=== PATIENT | female | born 1955 | race Caucasian/White ===

== ENCOUNTER 2024-03-13 14:18 | Outpatient (AMB) | payer MEDICARE, SELFPAY ==
--- NOTE | 2024-03-13 14:00 | MHC.PC.OV ---
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 Intake Note: New patient visit [place] [facility] Required: No Allergies NSAIDS (Non-Steroidal Anti-Inflamma Allergy (Unknown, Verified 03/13/24 14:01) Unknown Tobacco use date assessed: 03/13/24 Fall risk assessment: No Falls in past year Last assessed Fall Risk: 03/13/24 Dental Screening Dental Screen Date: 03/13/24 Did you have a dental visit in the last 12 months?: No Did you have a dental problem in the last 6 months where you did not have access to dental care?: No Was dental information given to patient?: Patient declined HPI HPI Comments History of Present Illness Details This is a 67-year-old female with a past medical history of ileitis, obesity, hypertension, osteoarthritis presenting to [facility]. She transferred from my panel at [facility]. Patient was informed and verbally consented to the use of an ambient scribe for clinic note documentation during this visit. She has increased anxiety secondary to recent significant life stressors, including the of her from cancer in hospice care in October. She is struggling with grief and significant life transitions, which are impacting her mental health. Her brother February of 2023. Patient is still working. She is trying to deal with the finances following the of her . Patient followed by [facility]iology for palpitations. During recovery following colonoscopy she briefly went into a tachy arrhythmia. It was very brief under 60 seconds. It was not demonstrated on 12 lead EKG. She had a 2 week monitor with Cardiology, and they increased her dose of metoprolol. She says they did not call with the results of her monitor. The patient describes ongoing right shoulder pain since September, exacerbated by movement, and complicated by a long history of repetitive stress from work. There?s limited range of motion noted in lifting her arm above her head. She uses topical analgesics for relief but reports persistent discomfort. Sometimes she has tension in her neck muscles and pain and feels a burning between the right shoulder and neck. No weakness in her arm or numbness or tingling in her arm. She continues to suffer from insomnia, worsened by anxiety and chronic knee pain, leading to fatigue and coping difficulties. Previous treatments have included tramadol and lorazepam, which she finds effective for managing her symptoms. Eduardo would not fill these medications after I left the office. She has tried SSRIs, and they made her feel like a zombie. Patient had a colonoscopy 04/30/2023 following episode of ileitis. Denies abdominal pain, nausea, vomiting or diarrhea. ROS - Psychiatric: Reports increased stress, anxiety, and insomnia. - Musculoskeletal: Reports right shoulder pain with movement. - Cardiovascular: Reports episodes of palpitations. Denies chest pain, shortness of breath, syncope or leg swelling. PE Constitutional: Alert, in no distress. Respiratory: Clear to auscultation. Cardiovascular: S1 S2 regular. No murmurs.. Neurologic: No focal neurological deficits Musculoskeletal: Decreased abduction with the left shoulder. Positive empty can test with the left shoulder. Full range of motion with the cervical spine. No midline spinal tenderness. Handgrip strength 5/5 bilaterally. Extremities: Warm and well perfused. No clubbing, cyanosis or edema. Psychiatric: Normal mood and affect. [facility] Medical History (Updated 03/13/24 @ 16:27 by ROS cMgarry) Osteoarthritis of knees, bilateral Ileitis Tubular adenoma of colon Essential hypertension Palpitations Anxiety Grief reaction Right shoulder pain Neck pain Bilateral cataracts Surgical History (Updated 03/13/24 @ 13:57 by Cinda Rivas CMA) History of bunionectomy H/O section Hx of total knee replacement Family History (Updated 03/13/24 @ 13:59 by Cinda Rivas CMA) Mother DVT (deep venous thrombosis) Pulmonary embolism Polymyalgia rheumatica Father ETOH abuse Brother Arthritis Lupus (systemic lupus erythematosus) Other Substance abuse Social History (Updated 03/13/24 @ 14:29 by Cinda Rivas CMA) Housing: House Alcohol intake: current Patient Tobacco Use Status: Former Tobacco user Cigarettes Per Day: 3 Years Smoked: 6 e-Cigarette/Vaping Use: Never Used service: No Current occupational status: employed 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 Current occupational exposures/hazards: No Cognitive needs: No Hearing needs: No Vision needs: No Physical exam (Primary Care) Vital Signs: Last Vital Signs Pulse 63 03/13/24 14:21 BP 116/86 11/21/24 14:21 Pulse Ox 98 03/13/24 14:21 Oxygen Delivery Method Room Air 03/13/24 14:21 BMI result Body Mass Index 36.4 Tobacco/Smoking Status: Tobacco use Status Tobacco use date assessed 03/13/24 03/13/24 14:30 Patient Tobacco Use Status Former Tobacco user 03/13/24 14:30 e-Cigarette/Vaping Use Never Used 03/13/24 14:30 Coding Level of Care Code Est Pt Level 5 (33953) Complex EM visit Add On G2211 Diagnoses Anxiety F41.9 Grief reaction F43.21 Chronic right shoulder pain M25.511; G89.29 Chronicity: chronic Neck pain M54.2 Palpitations R00.2 Time Spent (min) 50 Comment direct patient care and completing documentation Assessment & Plan Assessment & Plan (1) Anxiety: Code(s): F41.9 - Anxiety disorder, unspecified Category: Medical (2) Grief reaction: Code(s): F43.21 - Adjustment disorder with depressed mood Category: Medical (3) Right shoulder pain: Code(s): M25.511 - Pain in right shoulder Category: Medical Qualifiers: Chronicity: chronic Qualified Code(s): M25.511 - Pain in right shoulder; G89.29 - Other chronic pain (4) Neck pain: Code(s): M54.2 - Cervicalgia Category: Medical (5) Palpitations: Code(s): R00.2 - Palpitations Category: Medical Plan Anxiety: The patient continues to experience anxiety and insomnia. Refill of lorazepam 1 mg BID prn for use as needed for anxiety management. Discussed consideration of potential sleep aids, with non-benzodiazepine options preferred if needed. Grief reaction: Emotional support provided to patient. Referred to therapy and given information for [facility]. Chronic Pain: Patient was instructed to resume tramadol 50 mg every 8 hours as needed for chronic shoulder pain, considering the persistent pain due to OA in her knees and chronic left shoulde rpain. A referral for physical therapy was discussed as part of a multimodal approach pending imaging results. Palpitations: Ensure continuation of metoprolol and follow up with cardiology to interpret results from heart monitoring. Advised on monitoring symptoms and seeking further cardiology follow-up . Right Shoulder Pain: Ordered X-rays of the right shoulder and cervical spine to evaluate the integrity and possible causes of pain, such as rotator cuff issues or cervical spine involvement. If indicated, follow-up with physical therapy and consider MRI if no improvement after conservative measures. Essential Hypertension: Continue current antihypertensive regimen. Reassess at follow-up to ensure blood pressure goals are being met. Follow up in 8 weeks. Orders: Orders XR shoulder RT min 2V Today M54.2 - Cervicalgia XR cervical spine 4V Today M25.511 - Pain in right shoulder Referrals Psychology Referral F41.9 - Anxiety disorder, unspecified, F43.21 - Adjustment disorder with depressed mood, Z63.4 - Disappearance and of family member Medications: New tramadol 50 mg PO Q8H 28 days PRN 84 tabs 0RF pain lorazepam 1 mg PO BID 28 days PRN 56 tabs 0RF anxiety
[2024-03-13 14:21] VITALS: BP 116/86; PULSE 63; O2SAT 98; BMI 36.4
== END 2024-03-13 15:08 | disposition home or self-care (01) ==
PROVIDERS: PCP Physician Assistant Medical; Visit Provider Physician Assistant Medical
DX: M25.511 Pain in right shoulder (principal); F41.9 Anxiety disorder, unspecified; F43.21 Adjustment disorder with depressed mood; G89.29 Other chronic pain; M54.2 Cervicalgia; R00.2 Palpitations

== ENCOUNTER → 2024-03-13 14:18 | Outpatient (BNVA) | payer MEDICARE, SELFPAY | PROVIDERS: PCP Physician Assistant Medical; Visit Provider Physician Assistant Medical | DX: F41.9 Anxiety disorder, unspecified (principal); G47.00 Insomnia, unspecified; F43.21 Adjustment disorder with depressed mood; G89.29 Other chronic pain; M25.511 Pain in right shoulder; M17.0 Bilateral primary osteoarthritis of knee; M54.2 Cervicalgia; R00.2 Palpitations; I10 Essential (primary) hypertension; Z79.899 Other long term (current) drug therapy | CPT/HCPCS: 99212 ==

== ENCOUNTER 2024-05-09 18:07 | Outpatient (REF) | payer MEDICARE, SELFPAY ==
--- NOTE | ~2024-05-09 | MR_ITS ---
CLINICAL HISTORY: M54.12 - Radiculopathy, cervical region MR cervical spine without gadolinium Comparison: None Findings: Mildly accentuated cervical lordosis. Minute degenerative or physiologic retrolisthesis of C3, C4 and C5. Minute spondylolisthesis of T1 and T2. Normal vertebral body height, marrow signal and precervical soft tissue thickness. Intact craniocervical junction and C1-2. C2-3: Central disc protrusion without cord contact or effacement. Right-sided facet arthritis with mild narrowing right C3 foramen. Patent left C3 foramen. C3-4: Central protrusion appearing to slightly indent the ventral cervical cord. No intradural signal abnormality. Mild right-sided facet arthritis slightly effacing right C4 foramen. C4-5: Disc osteophyte complex and mild facet arthritis. Cord contact without cord effacement or intradural signal abnormality. C5 foraminal narrowing slightly greater to the right. C5-6: Disc osteophyte complex . Mild ventral cord effacement without intradural signal abnormality. Effacement of the ventral and dorsal CSF columns. Uncinate hypertrophy [id number] with C6 foraminal stenosis greater to the right. C6-7: Disc osteophyte complex, mild cord effacement without intradural signal abnormality. Mild facet arthritis. Patent C7 foramina. C7-T1: Normal disc level. No acute process evident in the included posterior fossa structures. No intradural signal abnormality. No acute appearing abnormality of the paracervical soft tissues. IMPRESSION: Degenerative disc changes throughout. Mild spinal stenosis with ventral cord effacement at C5-6 slightly greater than C6-7 with slight cord effacement at C3-4 and C4-5. No critical stenosis. No intradural signal abnormality. Asymmetric right-sided facet arthritis at C3-4 with right C4 foraminal narrowing. Additional foraminal narrowing as detailed. This document has been electronically signed by: Rasheed Millard MD on 05/12/2024 11:23:19
--- NOTE | ~2024-05-09 | MR_ITS ---
CLINICAL HISTORY: M25.511 - Pain in right shoulder MR right shoulder without gadolinium Comparison: None Findings: Exam degraded by motion artifact. Degenerative cystic changes in the anterior medial and posterolateral humeral head. No evidence of occult fracture, contusion or osteonecrosis. Severe chondrosis of the glenohumeral joint with large osteophyte from the inferior humeral head. Joint effusion with 7 mm intra-articular body in the subcoracoid recess. Severe tendinosis of the supraspinatus tendon with near full-thickness critical zone tear at approximately 11 x 9 mm in length and width . Few residual intrasubstance fibers. Additional bursal surface partial tear involving proximally 50% of the cross-sectional tendon diameter. Mild articular surface fraying of the infraspinatus. Intact teres minor and subscapularis tendons. Intact tendon long head of the biceps. Degenerative type 2 SL AP tear. Moderate degenerative arthritis AC joint. Type 2 acromion with anterior downsloping and inferior projecting osteophytes with subacromial spur and thickened coracoacromial ligament insertion all combining to efface the subacromial outlet interval and bursal surface of the supraspinatus myotendinous junction. Suprascapular, spinoglenoid notch, quadrilateral space and axillary regions intact. Impression: Advanced degenerative arthritis of the glenohumeral joint with severe chondrosis, large inferior osteophyte from the humeral head and intra-articular loose body. Severe tendinosis with a high-grade essentially complete non retracted tear of the supraspinatus tendon as above. Articular surface fraying of the infraspinatus tendons. Intact teres minor and subscapularis tendons. Normal cuff muscles. Joint effusion and effusion of the subdeltoid subacromial bursa. Degenerative superior labral tear. This document has been electronically signed by: Rasheed Millard MD on 05/12/2024 11:08:31
== END 2024-05-09 18:08 | disposition home or self-care (01) ==
LOC: HO.MRI 18:07
PROVIDERS: PCP Physician Assistant Medical; Visit Provider Physician Assistant Medical
DX: M54.12 Radiculopathy, cervical region (principal); M25.511 Pain in right shoulder; G89.29 Other chronic pain
CPT/HCPCS: 72141; 73221

== ENCOUNTER → 2024-05-09 18:19 | Outpatient (BNV) | payer MEDICARE, SELFPAY | PROVIDERS: PCP Physician Assistant Medical; Visit Provider Radiology Diagnostic Radiology | DX: M50.30 Other cervical disc degeneration, unspecified cervical region (principal); M19.011 Primary osteoarthritis, right shoulder; M67.813 Other specified disorders of tendon, right shoulder; M25.411 Effusion, right shoulder | CPT/HCPCS: 72141; 73221 ==

== ENCOUNTER 2024-09-22 09:58 | Outpatient (AMB) | payer MEDICARE, SELFPAY ==
--- NOTE | 2024-09-22 10:00 | MHC.PC.OV ---
Vital Signs 09/22/24 10:06 Height 5 ft 3.78 in Weight 212 lb BMI 36.6 BP 124/68 Blood Pressure Location Rt brachial Pulse 66 Pulse Source Pulse Oximeter Temp 97.9 F Temp Source Temporal Artery Scan Pulse Oximetry (%) 97 Oxygen Delivery Method Room Air Intake Visit Reasons: lab review/neck/shoulder fu Intake Note: Falguni presents in the office today to go over her most recent lab results and issues with her neck and shoulder. Allergies NSAIDS (Non-Steroidal Anti-Inflamma Allergy (Unknown, Verified 09/22/24 10:04) Unknown Tobacco use date assessed: 09/22/24 Fall risk assessment: No Falls in past year Last assessed Fall Risk: 09/22/24 Dental Screening Dental Screen Date: 09/22/24 Did you have a dental visit in the last 12 months?: No Did you have a dental problem in the last 6 months where you did not have access to dental care?: No Was dental information given to patient?: Patient has dentist HPI HPI Comments History of Present Illness Details This is a 67-year-old female with a past medical history of ileitis, obesity, hypertension, osteoarthritis presenting for follow up. At her last visit she reported right shoulder pain since September 2023 exacerbated by movement and complicated by stress. She had limited range of motion lifting her arm above her head. She also endorsed tension in her neck muscles and feeling burning between the right shoulder and neck. She had an MRI of her right shoulder and her cervical spine 05/09/2024. This demonstrated advanced degenerative arthritis in her glenohumeral joint with severe chondrosis, severe tendinosis with a high-grade essentially complete non retracted tear of the supraspinatus tendon and a joint effusion of the subdeltoid subacromial bursa and a degenerative superior labral tear. It also showed degenerative disc disease, mild spinal stenosis and asymmetric right-sided facet arthritis with C3-C4 foraminal narrowing. I referred her to Orthopedics. She went to [facility]. Current pain medications include tramadol 50 mg every 8 hours which she was taking previously due to chronic knee pain and osteoarthritis, and she is using Percocet infrequently for severe pain. She had a cortisone shot which helped for a month. She is going to follow up with [facility]. She is doing physical therapy. She started in August. She reported lightheadedness for 3-4 days. No room spinning sensation, nausea, vomiting. This was a couple months ago. It hasn't returned. She had lab work done on 09/01/24. CBC was normal. Sodium and potassium mildly decreased at 133 and 3.3. Normal LFTs. Negative urinalysis. Normal TSH. B12 350. Magnesium normal at 2.0. The patient is on chlorthalidone for hypertension. She also takes metoprolol succinate ER 50 mg a day. Her blood pressure is well-controlled. Started B12. She has increased anxiety secondary to recent significant life stressors, including the of her from cancer in hospice care in October 2023. Patient is still working. She is trying to deal with the finances following the of her . She thinks about grief counseling, but she is not ready to pursue it yet. Her kids and family are very supportive. Patient followed by [facility] in [place] for palpitations. During recovery following colonoscopy she briefly went into a tachy arrhythmia. It was very brief under 60 seconds. It was not demonstrated on 12 lead EKG. She had a 2 week monitor with Cardiology, and they increased her dose of metoprolol. Denies palpitations, chest pain, shortness of breath. She continues to suffer from insomnia, worsened by anxiety and chronic knee pain, leading to fatigue and coping difficulties. She has tried SSRIs, and they made her feel like a zombie. She takes lorazepam as needed. Patient had a colonoscopy 04/30/2023 following episode of ileitis. Denies abdominal pain, nausea, vomiting or diarrhea. ROS: Constitutional: No unexplained weight loss, fever, chills or night sweats. Eyes: No vision changes, blurry vision, double vision, eye pain, eye redness, eye discharge. Respiratory: No shortness of breath, cough or sputum production. Cardiovascular: No chest pain, chest pressure or chest discomfort. No palpitations or pedal edema. Gastrointestinal: No anorexia, nausea, vomiting or diarrhea. No abdominal pain or blood in stool. Genitourinary: No dysuria, hematuria, urinary frequency. Neurologic: No headache, syncope, unilateral weakness, ataxia, numbness or tingling in the extremities. Musculoskeletal: see HPI Psychiatric: No depression. see HPI Physical exam: Constitutional: Alert, in no distress. Head: Normocephalic. Eyes: Pupils are equal, round and reactive to light. Extraocular muscles intact. Ear, Nose and Throat: Canals clear. TMs normal. Normal nasal mucosa. No nasal discharge. No oral lesions. Neck: Supple, Full range of motion. No lymphadenopathy. No palpable thyroid masses. Respiratory: Clear to auscultation. Cardiovascular: S1 S2 regular. No murmurs. No carotid bruits. Neurologic: No focal neurological deficits. Extremities: Warm and well perfused. No clubbing, cyanosis or edema. Psychiatric: Normal mood and affect [facility] Medical History (Updated 09/23/24 @ 13:00 by ROS Mcgarry) Chronic pain Hyponatremia Hypokalemia Dizziness Cervical stenosis of spinal canal Effusion, right shoulder Labral tear of shoulder Right rotator cuff tear Osteoarthritis of knees, bilateral Ileitis Tubular adenoma of colon Essential hypertension Palpitations Anxiety Grief reaction Right shoulder pain Neck pain Bilateral cataracts Surgical History (Updated 03/13/24 @ 13:57 by Cinda Rivas CMA) History of bunionectomy H/O section Hx of total knee replacement Family History Mother DVT (deep venous thrombosis) Pulmonary embolism Polymyalgia rheumatica Father ETOH abuse Brother Arthritis Lupus (systemic lupus erythematosus) Other Substance abuse Social History (Updated 09/22/24 @ 10:05 by Tika Charles MA) Housing: House Alcohol intake: never Patient Tobacco Use Status: Former Tobacco user Cigarettes Per Day: 3 Years Smoked: 6 e-Cigarette/Vaping Use: Never Used service: No Current occupational status: employed 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 1. Little interest or pleasure in doing things: not at all 2. Feeling down, depressed, or hopeless: not at all 3. Trouble falling or staying asleep, or sleeping too much: several days 4. Feeling tired or having little energy: several days 5. Poor appetite or overeating: several days 6. Feeling bad about yourself - or that you are a failure or have let yourself or your family down: not at all 7. Trouble concentrating on things, such as reading the newspaper or watching television: not at all 8. Moving or speaking so slowly that other people could have noticed. Or the opposite - being so fidgety or restless that you have been moving around a lot more than usual: not at all 9. Thoughts that you would be better off or of hurting yourself in some way: not at all Total score: 3 Depression Screening Interpretation: Negative Depression Screening Done: Yes 27987 - PHQ-9 Billing: Yes Source: Developed by Drs. Poncho Lopez, Sharon Steven, Kameron Stevenson and colleagues, with an educational valentin from [employer]. Thrive Questionnaire Date Thrive assessed: 09/22/24 I am a: Patient What is your living situation today?: I have a steady place to live Within the past 12 months, did the food you bought not last and you didn't have the money to get more?: Never true Within the past 12 months, did you worry whether your food would run out before you got money to buy more?: Never true Do you have trouble paying for medicines?: No Do you have trouble getting transportation to medical appointments?: No Do you have trouble paying your heating and electricity bill?: No Do you have trouble taking care of your child, family member or friend?: No Do you have trouble with day-to-day activities such as bathing, preparing meals, shopping, managing finances, etc.?: No Are you currently unemployed and looking for a job?: No Are you interested in more education?: No Please select the resources that you would like help with: None Currently or been in a relationship where the following occur: No concerns reported THRIVE Score: 0 AUDIT C Alcohol Use Questionnaire (AUDIT-C) 1. How often do you have a drink containing alcohol?: Never Total Score: 0 CANDIS-7 AMB Questionnaire CANDIS-7 Date CANDIS - 7 assessed: 09/22/24 Feeling nervous, anxious, or on edge: 0 = Not at all Not being able to stop or control worryin = Not at all Worrying too much about different things: 0 = Not at all Trouble relaxin = Several days Being so restless that it is hard to sit still: 0 = Not at all Becoming easily annoyed or irritable: 0 = Not at all Feeling afraid as if something awful might happen: 0 = Not at all Total CANDIS-7 score (0-4 normal; 5-9 mild; 10-14 moderate; 15-21 severe): 1 Source: Developed by Drs. Poncho Lopez, Sharon Steven, Kameron Stevenson and colleagues, with an educational valentin from [employer]. CANDIS-7 Assessment Billing CANDIS-7 Assessment Tool: CANDIS-7 Assessment 32725 Physical exam (Primary Care) Vital Signs: Last Vital Signs Temp 97.9 F 09/22/24 10:06 Pulse 66 09/22/24 10:06 BP 124/68 09/22/24 10:06 Pulse Ox 97 09/22/24 10:06 Oxygen Delivery Method Room Air 09/22/24 10:06 BMI result Body Mass Index 36.6 Tobacco/Smoking Status: Tobacco use Status Tobacco use date assessed 09/22/24 09/22/24 10:08 Patient Tobacco Use Status Former Tobacco user 09/22/24 10:05 e-Cigarette/Vaping Use Never Used 09/22/24 10:05 PHQ-9: PHQ-9 Score PHQ-9: Total score 3 09/22/24 10:11 Depression Screening Interpretation: Negative Thrive Assessment: Date of Thrive Assessment Date Thrive assessed 09/22/24 09/22/24 10:08 Currently or been in a relationship where the following occur: No concerns reported Coding Level of Care Code Est Pt Level 4 (95894) Complex EM visit Add On G2211 Diagnoses Hypokalemia E87.6 Hyponatremia E87.1 Anxiety F41.9 Grief reaction F43.21 Chronic right shoulder pain M25.511; G89.29 Chronicity: chronic Palpitations R00.2 Chronic pain G89.29 Essential hypertension I10 Additional Codes CANDIS-7 Assessment Billing - CANDIS-7 Assessment Tool: CANDIS-7 Assessment 32984 ([id number]) PHQ-9 - 76456 - PHQ-9 Billing: Yes ([id number]) Assessment & Plan Assessment & Plan (1) Hypokalemia: Code(s): E87.6 - Hypokalemia Category: Medical Plan: In the setting of chlorthalidone use. She was taking [id number] potassium supplement. She will stop and start potassium chloride 20 mEq once daily. (2) Hyponatremia: Code(s): E87.1 - Hypo-osmolality and hyponatremia Category: Medical Plan: We reviewed her fluid intake. She drinks 5 or 6 bottles of water a day. She is going to decrease her fluid intake and she should have a beverage with electrolytes in it like a Gatorade zero sugar or Pedialyte once daily. (3) Anxiety: Code(s): F41.9 - Anxiety disorder, unspecified Category: Medical (4) Grief reaction: Code(s): F43.21 - Adjustment disorder with depressed mood Category: Medical Plan: She thinks about grief counseling, but she is not ready to pursue it yet. Did not respond well to antidepressant/antianxiety meds in the past. Continue lorazepam 1 mg twice daily as needed. Do not take this if you are taking tramadol or Percocet. Do not drive, drink alcohol or operate heavy machinery with it. (5) Right shoulder pain: Code(s): M25.511 - Pain in right shoulder Category: Medical Qualifiers: Chronicity: chronic Qualified Code(s): M25.511 - Pain in right shoulder; G89.29 - Other chronic pain Plan: Starting physical therapy. She had a cortisone injection. Followed by [facility]. (6) Palpitations: Code(s): R00.2 - Palpitations Category: Medical Plan: Evaluated by Cardiology. No recurrence. Continue beta-nile. (7) Chronic pain: Code(s): G89.29 - Other chronic pain Category: Medical Plan: Stable on current regimen. Patient aware not to use Percocet for her shoulder if she is taking tramadol. Do not drive or operate heavy machinery or drink alcohol with these medications. (8) Essential hypertension: Code(s): I10 - Essential (primary) hypertension Category: Medical Plan: Controlled. Continue current regimen. Plan Repeat labs in 4 weeks. Schedule physical exam in 4 months. Orders: Orders Sodium 1 Month E87.1 - Hypo-osmolality and hyponatremia, E87.6 - Hypokalemia Potassium 1 Month E87.1 - Hypo-osmolality and hyponatremia, E87.6 - Hypokalemia Vitamin B12 1 Month E87.1 - Hypo-osmolality and hyponatremia, E87.6 - Hypokalemia, Z91.89 - Other specified personal risk factors, not elsewhere classified Medications: New potassium chloride ER 20 mEq PO DAILY 90 tabs 0RF
[2024-09-22 10:06] VITALS: BP 124/68; PULSE 66; TEMP 36.6; O2SAT 97; BMI 36.6
--- OUTSIDE RECORDS SUMMARY | 2024-09-22 10:50 | XMS_ITS | Clinical Summary ---
Author Organization [facility] it Address [address] [place] [address] Care Team Providers Care Gang Boss Name Role Phone Naeem Stein MD Primary Care Provider [phone] Surgical History Surgery Date Site/Laterality Comments BUNIONECTOMY 2011 Right PROCEDURE: CT CORRJ HLX VLGS BNCTY SESMDC W/DOUBLE OSTEOTOMY; COMMENT: has plate/screws SECTION PROCEDURE: HISTORICAL DELIVERY; COMMENT: x 3 OTHER SURGICAL HISTORY 1986 PROCEDURE: INSERTION OF CHEST TUBE Medical History Medical History Date Comments Knee pain, chronic DX:Knee pain, chronic; COMMENT: left HLD (hyperlipidemia) 03/06/2014 DX:HLD (hyp erlipidemia) Anxiety 01/26/2016 DX:Anxiety Hypertension 01/27/2021 DX:Hypertension Hypertension 01/27/2021 DX:Hypertension Family History Medical History Relation Name Comments Glaucoma Mother Macular degeneration Uncle Blindness Neg Hx cataract, strab ismus Relation Name Status Comments Mother Uncle Social History Tobacco Use Types Packs/Day Years Used Date Smoking Tobacco: Former Cigarettes 0.3 47 0 04/23/1972 - 04/23/2019 Smokeless Tobacco: Never Alcohol Use Standard Drinks/Week Comments No 0 (1 standard drink = 0.6 oz pur e alcohol) Comments Unknown Sex and Gender Information Value Date Recorded Sex Assigned at Not on file Legal Sex Female 4:46 AM EST Gender Identity Not on file Sexual Orientation Not on file Obstetrics History Last Filed Vital Signs Vital Sign Reading Time Taken Comments Blood Pressure 148/88 09/06/2021 7:14 AM EDT Pulse - - Temperature - - Respiratory Rate - - Oxygen Saturation - - Inhaled Oxygen Concentration - - Weight 101 kg (223 lb) 09/06/2021 7:14 AM EDT Height 165.1 cm (5' 5 ) 09/06/2021 7:14 AM EDT Body Mass Index 37.11 09/06/2021 7:14 AM EDT Plan of Treatment Health Maintenance Due Date Last Done Comments Breast Cancer Screening 1955 Pneumococcal Vaccine: 50+ Years (1 of 1 - PCV) 2006 Zoster Vaccines (1 of 2) 2006 Cholesterol Screening (Lipid Panel) 03/26/2022 Colorectal Cancer Screening: Stool Based Tests (FOBT/FIT) 03/26/2022 Depression Screening 03/26/2022 Falls Risk Assessment 03/26/2022 Hepatitis C Screening 03/26/2022 Osteoporosis Screening (Bone Density Screening) 03/26/2022 Social Influencers of Health Screening 03/26/2022 Hypertension/CHF/CAD Annual BMP Blood Test 04/02/2022 COVID-19 Vaccine (4 - 2023-2 5 season) 2023 04/22/2021, 07/31/2020, 07/10/2020 Influenza Vaccine (Season Ended) 2024 DTaP,Tdap,and Td Vaccines (3 - Td or Tdap) 10/01/2028 10/01/2018, 04/23/2008 RSV Immunization Adult Patients (1 - 1-dose 75+ series) 08/28/2031 HIB Vaccines Aged Out No longer eligi ble based on patient's age to complete this topic HPV Vaccines Aged Out No longer eligi ble based on patient's age to complete this topic Hepatitis A Vaccines Aged Out No long er eligible based on patient's age to complete this topic Hepatitis B Vaccines Aged Out No long er eligible based on patient's age to complete this topic IPV Vaccines Aged Out No longer eligi ble based on patient's age to complete this topic MMR Vaccines Aged Out No longer eligi ble based on patient's age to complete this topic Meningococcal ACWY Vaccine Aged Out N o longer eligible based on patient's age to complete this topic Meningococcal B Vaccine Aged Out No l onger eligible based on patient's age to complete this topic RSV Immunization Patients Under 20 months Aged Out No longer eligible b ased on patient's age to complete this topic Varicella Vaccines Aged Out No longer eligible based on patient's age to complete this topic Advance Directives Documents on File Type Date Recorded 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
== END 2024-09-22 10:40 | disposition home or self-care (01) ==
LOC: HO.HMCFM 09:59
PROVIDERS: PCP Physician Assistant Medical; Visit Provider Physician Assistant Medical
DX: E87.6 Hypokalemia (principal); E87.1 Hypo-osmolality and hyponatremia; F41.9 Anxiety disorder, unspecified; F43.21 Adjustment disorder with depressed mood; M25.511 Pain in right shoulder; G89.29 Other chronic pain; R00.2 Palpitations; I10 Essential (primary) hypertension

== ENCOUNTER → 2024-09-22 09:58 | Outpatient (BNVA) | payer MEDICARE, SELFPAY | PROVIDERS: PCP Physician Assistant Medical; Visit Provider Physician Assistant Medical | DX: E66.9 Obesity, unspecified (principal); I10 Essential (primary) hypertension; E87.1 Hypo-osmolality and hyponatremia; E87.6 Hypokalemia; F41.9 Anxiety disorder, unspecified; F43.21 Adjustment disorder with depressed mood; M25.511 Pain in right shoulder; G89.29 Other chronic pain; R00.2 Palpitations; Z68.36 Body mass index [BMI] 36.0-36.9, adult; Z87.891 Personal history of nicotine dependence; Z91.89 Other specified personal risk factors, not elsewhere classified | CPT/HCPCS: 96127; 99212 ==

== ENCOUNTER 2025-01-18 12:17 | Inpatient (IN) | payer MEDICARE, SELFPAY ==
--- NOTE | ~2025-01-18 | CT_ITS ---
CLINICAL HISTORY: severe abd pain CT abdomen and pelvis with contrast Comparison: None provided Findings: CT abdomen: Minor atelectasis within the right lower lobe. Lung bases otherwise clear. Multilevel degenerative disc disease and degenerative facet disease throughout the lumbar spine, most pronounced at L2-3 and L4-5. Mild convex right thoracolumbar curvature with compensatory convex left lower lumbar curvature. Small hiatal hernia. Stomach is decompressed. No dilated small bowel. Cysts are seen along the anterior aspect of the lateral segment of the left lobe of the liver measuring up to 12 mm in size. No solid hepatic mass lesions. Main portal vein is patent. Small splenule. Spleen is otherwise unremarkable. No pancreatic mass or peripancreatic inflammatory stranding. Gallbladder, adrenal glands, and kidneys are unremarkable for acute findings. No renal or ureteral calculi. No free air. CT pelvis: Prominent concentric wall thickening of the distal ileum and terminal ileum is identified. This wall thickening measures up to 12 mm. There is adjacent inflammatory stranding. This extends to the level of the ileocecal valve. Appendix is normal. No significant wall thickening of the colon. Scattered diverticuli seen within the distal descending colon and sigmoid colon without findings of diverticulitis. Urinary bladder is [id number] distended. No enlarged lymph nodes. Trace free pelvic fluid. IMPRESSION: Prominent concentric wall thickening of the distal ileum and terminal ileum most characteristic of infectious or inflammatory enteritis. Given that this involves the terminal ileum, inflammatory bowel disease (Crohn's disease) should be considered as a potential etiology. Clinical correlation advised. No findings to suggest perforation or obstruction at this time. This document has been electronically signed by: Edward Oliveros MD on 01/18/2025 16:14:04
[2025-01-18 12:40] VITALS: BP 186/87; PULSE 82; RESP 17; TEMP 36.3; O2SAT 95; BMI 34.4
--- NOTE | 2025-01-18 12:43 | ED.ABDPAIN ---
HPI - Abdominal Pain General Chief Complaint: Abdominal Pain Stated Complaint: severe abd cramping, diarrhea Time Seen by Provider: 01/18/25 13:20 Source: patient Mode of arrival: ambulatory Limitations: no limitations History of Present Illness ED Provider: ROS Moura HPI narrative: This is a 69-year-old female past medical history significant for ileitis, anxiety, hypertension, tubular adenoma of colon, presenting to the emergency department with a few days of nausea, vomiting, diffuse abdominal pain, diarrhea. She has been having difficulty tolerating p.o.. She reports a similar episode to this happened a few weeks ago. She does report recent antibiotic use within the past month. Reports she was taking it for ?blocked gland ?. She reports each time she eats she has a bowel movement. Overall feeling fatigued. She denies fevers, chills, chest pain, shortness of breath, headache, vision changes, dizziness and weakness. Patient had an colonoscopy done within last year reports it was normal Related Data Home Medications ?Medication ?Instructions ?Recorded ?Confirmed ascorbic acid (vitamin C) 1,000 mg 1 g PO Q6H 03/13/24 capsule cholecalciferol (vitamin D3) 125 125 mcg PO .3 times a week 03/13/24 mcg (5,000 unit) capsule zinc 140 .Route 03/13/24 Previous Rx's ?Medication ?Instructions ?Recorded chlorthalidone 25 mg tablet 25 mg PO DAILY #90 tabs 06/17/24 metoprolol succinate 50 mg 50 mg PO DAILY #90 tabs 06/17/24 tablet,extended release 24 hr cyanocobalamin (vitamin B-12) 1,000 mcg PO DAILY #90 tabs 09/11/24 1,000 mcg tablet oxycodone-acetaminophen 5 mg-325 1 tab PO Q12H PRN pain, severe 7 10/07/24 mg tablet (Percocet) days #14 tabs amoxicillin 875 mg-potassium 1 tab PO BID #20 tabs 11/13/24 clavulanate 125 mg tablet tramadol 50 mg tablet 50 mg PO Q8H PRN pain 28 days #84 11/28/24 tabs potassium chloride 20 mEq 20 meq PO DAILY #90 tabs 12/15/24 tablet,extended release lorazepam 1 mg tablet 1 mg PO BID PRN anxiety 28 days 12/25/24 #56 tabs Allergies Allergy/AdvReac Type Severity Reaction Status Date / Time NSAIDS (Non-Steroidal Allergy Unknown Unknown Verified 01/18/25 12:43 Anti-Inflamma Review of Systems Review of Systems Yes all other systems are reviewed and are negative [facility] Past Medical History Attestation statement: The following information was validated with the patient. Source: old records reviewed and nursing notes reviewed Medical History Chronic pain Hyponatremia Hypokalemia Dizziness Cervical stenosis of spinal canal Effusion, right shoulder Labral tear of shoulder Right rotator cuff tear Osteoarthritis of knees, bilateral Ileitis Tubular adenoma of colon Essential hypertension Palpitations Anxiety Grief reaction Right shoulder pain Neck pain Bilateral cataracts Surgical History History of bunionectomy H/O section Hx of total knee replacement Family History Family History Mother DVT (deep venous thrombosis) Pulmonary embolism Polymyalgia rheumatica Father ETOH abuse Brother Arthritis Lupus (systemic lupus erythematosus) Other Substance abuse Social History Social History Housing: House Unable to assess alcohol history related to: Unknown Alcohol intake: never Patient Tobacco Use Status: Former Tobacco user Cigarettes Per Day: 3 Years Smoked: 6 e-Cigarette/Vaping Use: Never Used Advance Directives: No Advance Directives Information Provided: Yes Do you have a plan to hurt others: No Plan service: No Current occupational status: employed 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 Oriented X3.? No acute distress.? Head: Normocephalic, atraumatic, no step-offs or deformities Eyes: Pupils equal, round and reactive to light.? ENT: Pharynx normal.? Neck: Normal inspection.? Neck supple.? CVS: Normal heart rate and rhythm.? Pulses normal.? Respiratory: No respiratory distress.? Breath sounds normal.? Abdomen: Soft and diffusely tender normoactive bs .? Skin: Skin warm and dry.? Normal skin color.? Normal skin turgor.? Extremities: No lower extremity edema.? No calf ttp. 5/5 strength to bilateral upper and lower extremitieBack: No midline tenderness, no C-spine tenderness, full range of motion, no CVA tenderness bilaterally Neuro: Oriented X 3.? No motor deficit.? No sensory deficit. CN 2-12 intact Vital Signs: Vital Signs - 24 hr 01/18/25 12:40 01/18/25 14:24 Temperature 97.4 F 98.5 F Pulse Rate 82 77 Respiratory Rate 17 18 Blood Pressure 186/87 H 167/73 H Pulse Oximetry 95 100 Oxygen Delivery Method Room Air Room Air BMI result Body Mass Index 34.4 vss Const General: cooperative, comfortable and no acute distress Course Course Course Narrative: Nel Edwards [employer]O MUSICIAN 01/18 1245 This is a rapid medical exam. deferred additional HPI, ROS, PE to primary provider. 69 yo female with history of HTN here with complaints of abdominal pain, vomiting, diarrhea since Sunday night. H/o ileus and feels similar. Will obtain labs, UA, viral testing VSS Reevaluation(s) Reevaluation #1: CBC unremarkable. Chemistry with low potassium 2.5, IV potassium ordered. Will also give p.o. potassium. UA clean. COVID, influenza negative. CT abd and pelvis pending. GI studies pending Time: 15:20 Reevaluation #2: CT abdomen pelvis with prominent concentric wall thickening of the distal ileum and terminal ileum most characteristic of infectious or inflammatory enteritis, question Crohn's disease no indication for antibiotics as there is no white count. I did reach out to GI recommend hospital admission adding fecal calpro and they will follow Will reach out to hospitalist Time: 16:36 Medical Decision Making Medical Decision Making [facility] Narrative: 69-year-old female presents with concerns of abdominal pain, diarrhea, nausea and vomiting ongoing for about 3 days. Had had an episode like this 2 weeks ago. She does report she was recently on antibiotics due to a ?blocked gland ? Physical exam diffuse abdominal tenderness History and physical exam concerning for irritable bowel disease versus gastroenteritis versus colitis. Will rule out diverticulitis. No signs of acute abdomen. Will rule out metabolic derangements. Plan labs, imaging, urine. Will do GI studies Differential Diagnosis Differential Diagnoses: The differential diagnosis associated with the presentation includes ( History and physical exam concerning for irritable bowel disease versus gastroenteritis versus colitis. Will rule out diverticulitis. No signs of acute abdomen. Will rule out metabolic derangements.) Admission/Observation Consideration of admission/observation: Escalation of care including admission/observation considered Consult Healthcare Provider Management of the patient was discussed with: Clean Out Driller Helper (GI - admit they will follow ) Lab Data MDM Lab Attestation statement: I reviewed the patient's lab results. 01/18/25 13:00 01/18/25 13:00 Labs: Lab Results 01/18/25 01/18/25 Range/Units 13:00 14:51 WBC 8.0 (4.8-10.8) X10*3/uL RBC 4.64 (4.20-5.50) X10*6/uL Hgb 14.3 (12.0-16.0) g/dl Hct 40.6 (37.0-47.0) % MCV 87.5 (80.0-98.0) fL MCH 30.8 (27.0-33.0) pg MCHC 35.2 H (31.0-35.0) g/dl RDW 13.4 (11.0-16.0) % Plt Count 339 (160-400) X10*3/uL MPV 9.0 L (9.4-12.3) fL Immature Gran % (Auto) 0.3 (0.0-0.4) % Neut % (Auto) 56.5 (45-73) % Lymph % (Auto) 30.2 (20-40) % [place] % (Auto) 8.5 (2-11) % Eos % (Auto) 3.6 (0-4) % Baso % (Auto) 0.9 (0-2) % Lymph # (Auto) 2.4 (1.2-4.9) X10*3/uL [place] # (Auto) 0.7 (0.1-1.2) X10*3/uL Eos # (Auto) 0.3 (0.0-0.4) X10*3/uL Baso # (Auto) 0.1 (0.0-0.2) X10*3/uL Abs Immat Gran (auto) 0.02 (0.00-0.03) X10*3/uL Absolute Neuts (auto) 4.5 (2.0-8.3) x10*3/uL Absolute Nucleated RBC 0.000 (0.0-0.012) X10*3/uL Nucleated RBC % (auto) 0.0 (0.0-0.2) /100WBC Sodium 139 (135-145) mmol/L Potassium 2.5 L* (3.3-5.1) mmol/L Chloride 103 (96-108) mmol/L Carbon Dioxide 27 (22-29) mmol/L Anion Gap 12 (12-20) BUN 9 (9-16) mg/dL Creatinine 0.59 (0.5-1.4) mg/dL Estim Creat Clear Calc 103.4 Estimated GFR > 60 Random Glucose 86 (60-115) mg/dL Calcium 9.0 (8.4-10.2) mg/dL Total Bilirubin 0.5 (0.0-1.0) mg/dL Direct Bilirubin 0.2 (0.0-0.5) mg/dL AST 20 (5-31) U/L ALT 18 (0-31) U/L Alkaline Phosphatase 70 (39-117) U/L Total Protein 6.7 (6.5-8.0) g/dL Albumin 4.4 (3.5-5.0) g/dL Lipase 8 (8-78) U/L Urine Color Yellow Urine Appearance Clear Urine pH 7.5 (5.0-9.0) Ur Specific [place] 1.015 (1.005-1.025) Urine Protein Negative (Neg-Trace) mg/dL Urine Glucose (UA) Negative (Negative) mg/dL Urine Ketones 15 (Negative) mg/dL Urine Blood Negative (Negative) Urine Nitrite Negative (Negative) Ur Leukocyte Esterase Negative (Negative) COVID-19 (NEO) Negative (Negative) COVID-19 Clin Com See Note Influenza Type A (MANDY) Negative (Negative) Influenza Type B (MANDY) Negative (Negative) Influenza A & B Note See Note Independent Interpretation I performed an independent interpretation of an: CT Scan (IMPRESSION: Prominent concentric wall thickening of the distal ileum and terminal ileum most characteristic of infectious or inflammatory enteritis. Given that this involves the terminal ileum, inflammatory bowel disease (Crohn's disease) should be considered as a potential etiology. Clinical co) Radiology Impression Discussion of test interpretation with radiology: I have reviewed the radiologist's reading. Independent Historian Clinical information obtained from an independent historian. History obtained from or confirmed by: Other (daughter ) External Record Review External record reviewed: Inpatient record, Office record, Outpatient record, Prior outpatient labs, Prior outpatient radiology, Primary care record and Outside ED record Prescription Management I considered prescription management with: Other Chronic Conditions Patient?s care impacted by: Other (see hpi ) Medications Administered Generic Name Dose Route Start Last Admin Trade Name Freq PRN Reason Stop Dose Admin Potassium Chloride 10 meq in 100 mls @ 100 mls/hr 01/18/25 13:45 01/18/25 15:59 Potassium Chloride/H20 IV 01/18/25 17:44 100 mls/hr Q1H [facility] Administration Discontinued Medications Generic Name Dose Route Start Last Admin Trade Name Freq PRN Reason Stop Dose Admin Sodium Chloride 1,000 mls @ 999 mls/hr 01/18/25 13:45 01/18/25 16:14 Ns IV 01/18/25 14:45 Infused .Q1H1M [facility] Infusion Iohexol 100 ml 01/18/25 14:37 01/18/25 14:37 Iohexol 350 Mg/Ml 100 Ml Infus..Btl IV 01/18/25 14:38 85 ml ONCE ONE Administration Morphine Sulfate 4 mg 01/18/25 13:43 01/18/25 14:48 Morphine Sulfate 4 Mg/Ml Cartridge IVPUSH 01/18/25 13:44 4 mg ONCE ONE Administration Protocol Ondansetron HCl 4 mg 01/18/25 13:35 01/18/25 14:48 Ondansetron Hcl 4 Mg/2 Ml Vial IVPUSH 01/18/25 13:36 4 mg ONCE ONE Administration Ondansetron HCl 4 mg 01/18/25 13:43 01/18/25 14:49 Ondansetron Hcl 4 Mg/2 Ml Vial IVPUSH 01/18/25 13:44 Not Given ONCE ONE Critical Care Time Critical Care Time Critical Care Time: Yes Total Critical Care Time: 35 Attestation: I attest to this time spent taking care of the patient, obtaining history, physical, reviewing labs, imaging, treatment of patients condition +/- specialist/hospitalist consult +/- procedure Discharge Plan Discharge Clinical Impression: Nausea & vomiting, Diarrhea, Hypokalemia, Abdominal pain Patient Disposition: Admitted As Inpatient Print Language: Bahraini
[2025-01-18 13:04] LABS: MANUAL DIFF FLAG NO
[2025-01-18 13:07] LABS: Hematocrit 40.6 % (37.0-47.0); Hemoglobin 14.3 g/dl (12.0-16.0); Imm Gran Abs Auto 0.02 X10*3/uL (0.00-0.03); Imm Gran Pct Auto 0.3 % (0.0-0.4); Lymphocytes Absolute Auto 2.4 X10*3/uL (1.2-4.9); Mean Corpuscular HGB Conc 35.2 g/dl (31.0-35.0); Mean Corpuscular Hemoglobin 30.8 pg (27.0-33.0); Mean Corpuscular Volume 87.5 fL (80.0-98.0); NRBC Abs Auto 0.000 X10*3/uL (0.0-0.012); NRBC Pct Auto 0.0 /100WBC (0.0-0.2); Platelet Count 339 X10*3/uL (160-400); Red Blood Count 4.64 X10*6/uL (4.20-5.50); White Blood Count 8.0 X10*3/uL (4.8-10.8)
--- OUTSIDE RECORDS SUMMARY | 2025-01-18 13:09 | XMS_ITS ---
Author Name [facility] Organization Unknown Care Team Organization Name Specialty Phone Email Start Date End Da iveth [facility] Sai Crandall [facility] 02/28/20222023
--- OUTSIDE RECORDS SUMMARY | 2025-01-18 13:09 | XMS_ITS | Clinical Summary ---
Author Organization [facility] Address [address] [place] [address] Care Team Providers Care Direct Casting Operator Name Role Phone Physician, No Pcp Primary Care Provider Unavaila ble Surgical History Surgery Date Site/Laterality Comments BUNIONECTOMY [...] Cancer Screening: Stool Based Tests (FOBT/FIT) 03/26/2022 Falls Risk Assessment 03/26/2022 Hepatitis C Screening 03/26/2022 Osteoporosis Screening (Bone Density Screening) 03/26/2022 Social Influencers of Health Screening 03/26/2022 Hypertension/CHF/CAD Annual BMP Blood Test 04/02/2022 Depression Screening 04/23/2024 COVID-19 Vaccine (4 - 2024-2 6 season) 2024 04/22/2021, 07/31/2020, 07/10/2020 Influenza Vaccine (#1) 2024 DTaP,Tdap,and Td Vaccines (3 - Td [...] Documents on File Type Date Recorded Patient Pet Nutrition Specialist Expl anation Health Care Decision (hx) 02/12/[address] DIRECTIVE Health Care Decision (hx) 02/12/[address] DIRECTIVE Health Care Decision (hx) 02/09/[address] DIRECTIVE Health Care Decision (hx) 02/09/[address] Care Teams Direct Casting Operator Relationship Specialty Start Date End Date Physician, No Pcp PCP - General 05/24/22
[2025-01-18 13:30] LABS: Alanine Aminotransferase 18 U/L (0-31); Albumin Level 4.4 g/dL (3.5-5.0); Alkaline Phosphatase 70 U/L (39-117); Anion Gap 12 (12-20); Aspartate Amino Transferase 20 U/L (5-31); Blood Urea Nitrogen 9 mg/dL (9-16); Calcium 9.0 mg/dL (8.4-10.2); Carbon Dioxide 27 mmol/L (22-29); Chloride 103 mmol/L (96-108); Creatinine Clr Calc Pharmacy 103.4; Estimated Glomerular Filt Rate > 60; Lipase 8 U/L (8-78); Potassium 2.5 mmol/L (3.3-5.1); Sodium 139 mmol/L (135-145); Total Protein 6.7 g/dL (6.5-8.0)
[2025-01-18 13:39] LABS: COVID-19 Test Negative (Negative); IDNOW Serial# 6674DD1D
[2025-01-18 13:40] LABS: IDNOW Serial# 08D9AD1C; Influenza B2 Negative (Negative)
[2025-01-18 14:24] VITALS: BP 167/73; PULSE 77; RESP 18; TEMP 36.9; O2SAT 100
[2025-01-18] MEDS: iohexoL 350 MG/ML 100 ML INFUS..BTL IV (14:37)
--- NOTE | 2025-01-18 14:45 | PC.NURSE ---
Pt to ED 10 from triage for abdominal pain, a/o x 3 and ambulates with steady gait. 20G IV to LUE, placed on bedside monitor. IVF and medications per JUN. Ct scan pending.
[2025-01-18] MEDS: Potassium Chloride/H20 10 MEQ/100 ML PIGGYBACK 100 MEQ IV ×4 (14:48→18:43)
[2025-01-18 15:01] LABS: Appearance Urine Clear; Glucose Urine UA Negative (Negative); PH 7.5 (5.0-9.0); Specific Gravity - Urine 1.015 (1.005-1.025)
[2025-01-18] MEDS: Potassium Chloride Packet 20 MEQ PACKET 40 MEQ PO ×2 (17:18→21:06)
--- NOTE | 2025-01-18 17:25 | P.HPHOSP_ITS ---
History of Present Illness Date of Service: 01/18/25 Chief Complaint: Abdominal pain 61-year-old female past medical history significant for history of ileitis hypertension tubular adenoma presents to the emergency room with several days of nausea vomiting and profuse diarrhea. She states she has had similar episodes the 1st being approximately 1 year ago; last 2 episodes or months apart. She denies bloody diarrhea. Diagnosed with ileitis on the 1st episode and discharge on oral Augmentin. She states this episode she has diffuse pain lower abdomen and has been having profuse diarrhea. CT scan in the emergency room demonstrate prominent concentric wall thickening of the distal ileum and terminal ileum most characteristic of infectious or inflammatory enteritis. Review of Systems 2 Review of Systems: Denies chest pain Denies shortness of breath Denies nausea vomiting. .. Admits diarrhea Denies fever chills PMFSH Medical History Chronic pain Hyponatremia Hypokalemia Dizziness Cervical stenosis of spinal canal Effusion, right shoulder Labral tear of shoulder Right rotator cuff tear Osteoarthritis of knees, bilateral Ileitis Tubular adenoma of colon Essential hypertension Palpitations Anxiety Grief reaction Right shoulder pain Neck pain Bilateral cataracts Family History Mother DVT (deep venous thrombosis) Pulmonary embolism Polymyalgia rheumatica Father ETOH abuse Brother Arthritis Lupus (systemic lupus erythematosus) Other Substance abuse Surgical History History of bunionectomy H/O section Hx of total knee replacement Social History Housing: House Alcohol intake: never Patient Tobacco Use Status: Former Tobacco user Cigarettes Per Day: 3 Years Smoked: 6 e-Cigarette/Vaping Use: Never Used service: No Current occupational status: employed 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 Current occupational exposures/hazards: No Cognitive needs: No Hearing needs: No Vision needs: No Meds Allergies Allergy/AdvReac Type Severity Reaction Status Date / Time NSAIDS (Non-Steroidal Allergy Unknown Unknown Verified 01/18/25 12:43 Anti-Inflamma Active Medications: Current Medications Acetaminophen (Acetaminophen 325 Mg Tablet) 650 mg PO Q6H PRN PRN Reason: Pain, Mild 1-3,fever,headache Calcium Carbonate (Calcium Carbonate 750 Mg Tab.Chew) 750 mg PO Q4H PRN PRN Reason: Heartburn Enoxaparin Sodium (Enoxaparin Sodium 40 Mg/0.4 Ml Syringe) 40 mg SUBCUT Q24H [facility] Potassium Chloride (Potassium Chloride/H20) 10 meq in 100 mls @ 100 mls/hr IV Q1H [facility] Stop: 01/18/25 17:44 Last Admin: 01/18/25 17:18 Dose: 100 mls/hr Sodium Chloride (Ns) 1,000 mls @ 999 mls/hr IV .Q1H1M [facility] Stop: 01/18/25 17:45 Last Admin: 01/18/25 17:20 Dose: 999 mls/hr Magnesium Hydroxide (Milk Of Magnesia 30 Ml Oral.Susp) 30 ml PO DAILY PRN PRN Reason: Constipation Melatonin (Melatonin 3 Mg Tablet) 6 mg PO BEDTIME PRN PRN Reason: Insomnia Morphine Sulfate (Morphine Sulfate 4 Mg/Ml Cartridge) 4 mg IVPUSH Q4H PRN; Protocol PRN Reason: Pain, Severe (Pain Scale 7-10) Ondansetron HCl (Ondansetron Hcl 4 Mg/2 Ml Vial) 4 mg IVPUSH Q8H PRN PRN Reason: Nausea and Vomiting Oxycodone HCl (Oxycodone Hcl Immed Release 5 Mg Tablet) 5 mg PO Q4H PRN PRN Reason: Pain, Moderate(Pain Scale 4-6) Sodium Chloride (0.9 % Sodium Chloride Flush 3 Ml Syringe) 3 ml IVFLUSH QSHIFT [facility] Home Medications ?Medication ?Instructions ?Recorded ?Confirmed ?Last Taken ?Type ascorbic acid (vitamin C) 1,000 mg 1 g PO Q6H 03/13/24 Unknown History capsule cholecalciferol (vitamin D3) 125 125 mcg PO .3 times a week 03/13/24 Unknown History mcg (5,000 unit) capsule zinc 140 .Route 03/13/24 Unknown His tory Physical Exam 2 Vital Signs and Narrative: Vital Signs: Last Vital Signs Temp 98.5 F 01/18/25 14:24 Pulse 77 01/18/25 14:24 Resp 18 01/18/25 14:24 BP 167/73 H 01/18/25 14:24 Pulse Ox 100 01/18/25 14:24 O2 Del Method Room Air 01/18/25 14:24 BMI result Body Mass Index 34.4 Const: Other: Awake alert oriented x3 no acute distress Resp: Other: Clear to auscultation bilaterally no rales rhonchi or wheezes Cardio: Other: No S4; positive S1-S2; no S3 murmurs rubs or gallops GI: Other: Soft positive bowel sounds. Diffusely tender lower abdomen without guarding Extrem: Other: No edema bilaterally Results Labs 01/18/25 13:00 01/18/25 13:00 Labs: Laboratory Results - last 24 hr 01/18/25 01/18/25 13:00 14:51 MCV 87.5 MCH 30.8 MCHC 35.2 H RDW 13.4 Plt Count 339 MPV 9.0 L Immature Gran % (Auto) 0.3 Neut % (Auto) 56.5 Lymph % (Auto) 30.2 [place] % (Auto) 8.5 Eos % (Auto) 3.6 Baso % (Auto) 0.9 Lymph # (Auto) 2.4 [place] # (Auto) 0.7 Eos # (Auto) 0.3 Baso # (Auto) 0.1 Abs Immat Gran (auto) 0.02 Absolute Neuts (auto) 4.5 Absolute Nucleated RBC 0.000 Nucleated RBC % (auto) 0.0 Anion Gap 12 Estim Creat Clear Calc 103.4 Estimated GFR > 60 Random Glucose 86 Calcium 9.0 Total Bilirubin 0.5 Direct Bilirubin 0.2 AST 20 ALT 18 Alkaline Phosphatase 70 C-Reactive Protein 0.49 Total Protein 6.7 Albumin 4.4 Lipase 8 Urine Color Yellow Urine Appearance Clear Urine pH 7.5 Ur Specific [place] 1.015 Urine Protein Negative Urine Glucose (UA) Negative Urine Ketones 15 Urine Blood Negative Urine Nitrite Negative Ur Leukocyte Esterase Negative COVID-19 (NEO) Negative COVID-19 Clin Com See Note Influenza Type A (MANDY) Negative Influenza Type B (MANDY) Negative Influenza A & B Note See Note Assessment and Plan (1) Abdominal pain: Qualifiers: Abdominal location: lower abdomen, unspecified Qualified Code(s): R 10.30 - Lower abdominal pain, unspecified Status: Acute (2) Hypokalemia: Status: Acute (3) Essential hypertension: Status: Acute Plan 61-year-old female with history significant for history of ileitis, hypertension, tubular adenoma presents to emergency room with 3-4 days of worsening lower abdominal pain with profuse diarrhea. She recount similar episodes approximately a year ago and the most recent being several months ago by her account. CTA in ER consistent with inflammatory versus infectious terminal ileum 1. Abdominal pain (CTA with prominent concentric wall thickening of distal ileum and terminal ileum. . . Infectious versus inflammatory ) -would hold on antibiotics; no fever no white count and patient does not examined toxic (likely inflammatory) -clear liquid diet tonight -NPO after midnight -morphine/oxycodone for pain -GI consult in a.m. 2. Hypokalemia -likely combination of diarrhea in the back of chlorthalidone use -hold chlorthalidone -aggressively replete potassium -follow renals/divalents 3. Hypertension -acceptable control on current therapies -adjust as indicated Full code Lovenox Patient will require at least 2 nights of inpatient stay going forward for correction of significant hypokalemia and for further workup of CAT scan findings along with specialty consultation. This can not be achieved a lesser acute setting Quality Stroke Does the patient have a stroke diagnosis?: No VTE Prior VTE?: No VTE Risk Level:: Medical - moderate - high VTE Device Contraindication: Treatment Not Indicated VTE Drug Contraindication: N/A - Med Ordered
[2025-01-18 17:53] LABS: Alanine Aminotransferase 14 U/L (0-31); Albumin Level 4.2 g/dL (3.5-5.0); Alkaline Phosphatase 69 U/L (39-117); Anion Gap 13 (12-20); Aspartate Amino Transferase 22 U/L (5-31); Blood Urea Nitrogen 6 mg/dL (9-16); Calcium 8.8 mg/dL (8.4-10.2); Carbon Dioxide 28 mmol/L (22-29); Chloride 104 mmol/L (96-108); Creatinine Clr Calc Pharmacy 115.0; Estimated Glomerular Filt Rate > 60; Potassium 3.6 mmol/L (3.3-5.1); Sodium 141 mmol/L (135-145); Total Protein 6.9 g/dL (6.5-8.0)
--- NOTE | 2025-01-18 18:46 | PHA.MEDREC ---
Pharmacy Consult ? Medication Reconciliation Pharmacy has completed the medication reconciliation. Spoke with patient to confirm. She takes tramadol 50 mg once daily, last taken today. Lorazepam is 1 mg bid prn, last taken today. She also reports taking a probiotic daily. She took all of her medications today besides vitamin D3, multivitamin, and vitamin C.
[2025-01-18 19:58] VITALS: BP 153/71; PULSE 79; RESP 10; TEMP 36.7; O2SAT 98
[2025-01-18 20:36] VITALS: BMI 35.2
[2025-01-18 20:55] VITALS: BP 140/68; PULSE 79; RESP 18; TEMP 36.6; O2SAT 95
[2025-01-18] MEDS: 0.9 % Sodium Chloride Flush 3 ML SYRINGE IVFLUSH (21:12)
[2025-01-18 23:47] VITALS: BP 144/65; PULSE 71; RESP 16; TEMP 36.9; O2SAT 97
[2025-01-19 03:39] VITALS: BP 130/60; PULSE 67; RESP 16; TEMP 36.6; O2SAT 95
[2025-01-19 05:27] LABS: CDiff Gene PCR NEGATIVE (Negative)
[2025-01-19 05:50] LABS: MANUAL DIFF FLAG NO
[2025-01-19 05:52] LABS: Hematocrit 39.2 % (37.0-47.0); Hemoglobin 13.2 g/dl (12.0-16.0); Imm Gran Abs Auto 0.02 X10*3/uL (0.00-0.03); Imm Gran Pct Auto 0.3 % (0.0-0.4); Lymphocytes Absolute Auto 1.8 X10*3/uL (1.2-4.9); Mean Corpuscular HGB Conc 33.7 g/dl (31.0-35.0); Mean Corpuscular Hemoglobin 30.3 pg (27.0-33.0); Mean Corpuscular Volume 89.9 fL (80.0-98.0); NRBC Abs Auto 0.000 X10*3/uL (0.0-0.012); NRBC Pct Auto 0.0 /100WBC (0.0-0.2); Platelet Count 309 X10*3/uL (160-400); Red Blood Count 4.36 X10*6/uL (4.20-5.50); White Blood Count 7.0 X10*3/uL (4.8-10.8)
[2025-01-19 06:07] LABS: Alanine Aminotransferase 17 U/L (0-31); Albumin Level 4.0 g/dL (3.5-5.0); Alkaline Phosphatase 62 U/L (39-117); Anion Gap 13 (12-20); Aspartate Amino Transferase 24 U/L (5-31); Blood Urea Nitrogen 7 mg/dL (9-16); Calcium 8.8 mg/dL (8.4-10.2); Carbon Dioxide 28 mmol/L (22-29); Chloride 106 mmol/L (96-108); Creatinine Clr Calc Pharmacy 118.7; Estimated Glomerular Filt Rate > 60; Potassium 3.8 mmol/L (3.3-5.1); Sodium 143 mmol/L (135-145); Total Protein 6.1 g/dL (6.5-8.0)
--- NOTE | 2025-01-19 06:18 | PM.GICN ---
History of Present Illness Data of Consult Service Date: 01/19/25 Requesting physician: Maicol Wilder Primary Care Provider: ROS Mcgarry HPI Reason for consult: Ileitis 69 y.o F with known recent hx of ileitis, follows with [facility] who is here for abd pain, N,V. She reports 1 week of severe abdominal pain, cramping, bloating, increased borborygmi with nausea, vomiting and diarrhea. Reports she has had at least 2 similar episodes in the past. The 1st episode was in April 2023, she had workup done as outpatient by her PCP for severe abdominal pain. This showed CT findings consistent with inflammation in terminal ileum. She was given oral antibiotics by her PCP and also had a follow-up colonoscopy done at [facility] that did not show any inflammation at the time of the procedure. She did have 4 polyps removed. She does not think the colonoscopy was done after any steroid pulse. Since then, she has had at least 2 more episodes, the most recent 1 started just this week. No fevers, chills. No sick contacts. Imaging personally reviewed, shows diffuse thickening of distal and terminal ileum. Pt has been constipated since coming in but able to pass flatulence. Review of Systems Review of Systems: Yes all other systems are reviewed and are negative PMFSH Past Medical History Medical History Chronic pain Hyponatremia Hypokalemia Dizziness Cervical stenosis of spinal canal Effusion, right shoulder Labral tear of shoulder Right rotator cuff tear Osteoarthritis of knees, bilateral Ileitis Tubular adenoma of colon Essential hypertension Palpitations Anxiety Grief reaction Right shoulder pain Neck pain Bilateral cataracts Family History Family History Mother DVT (deep venous thrombosis) Pulmonary embolism Polymyalgia rheumatica Father ETOH abuse Brother Arthritis Lupus (systemic lupus erythematosus) Other Substance abuse Surgical History Surgical History History of bunionectomy H/O section Hx of total knee replacement Social History Social History Household Members: Children Housing: House Do you presently have visiting nurse or other home services: No Alcohol intake: never Patient Tobacco Use Status: Former Tobacco user Cigarettes Per Day: 3 Years Smoked: 6 e-Cigarette/Vaping Use: Never Used service: No Current occupational status: employed 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 Current occupational exposures/hazards: No Cognitive needs: No Hearing needs: No Vision needs: No Meds Allergies Allergy/AdvReac Type Severity Reaction Status Date / Time NSAIDS (Non-Steroidal Allergy Unknown Unknown Verified 01/18/25 12:43 Anti-Inflamma amoxicillin (From Augmentin) AdvReac Nausea and Verified 01/19/25 06:55 Vomiting clavulanic acid (From AdvReac Nausea and Verified 01/19/25 06:55 Augmentin) Vomiting Active Medications: Current Medications Acetaminophen (Acetaminophen 325 Mg Tablet) 650 mg PO Q6H PRN PRN Reason: Pain, Mild 1-3,fever,headache Calcium Carbonate (Calcium Carbonate 750 Mg Tab.Chew) 750 mg PO Q4H PRN PRN Reason: Heartburn Enoxaparin Sodium (Enoxaparin Sodium 40 Mg/0.4 Ml Syringe) 40 mg SUBCUT Q24H [facility] Last Admin: 01/18/25 17:45 Dose: 40 mg Lorazepam (Lorazepam 1 Mg Tablet) 1 mg PO BID PRN PRN Reason: Anxiety Magnesium Hydroxide (Milk Of Magnesia 30 Ml Oral.Susp) 30 ml PO DAILY PRN PRN Reason: Constipation Melatonin (Melatonin 3 Mg Tablet) 6 mg PO BEDTIME PRN PRN Reason: Insomnia Metoprolol Succinate (Metoprolol Succinate Er 50 Mg Tab.Er.24h) 50 mg PO DAILY [facility]; Protocol Morphine Sulfate (Morphine Sulfate 4 Mg/Ml Cartridge) 4 mg IVPUSH Q4H PRN; Protocol PRN Reason: Pain, Severe (Pain Scale 7-10) Last Admin: 01/19/25 03:53 Dose: 4 mg Multivitamins/Vitamin C (Multivitamin Tablet) 1 tab PO DAILY [facility] Ondansetron HCl (Ondansetron Hcl 4 Mg/2 Ml Vial) 4 mg IVPUSH Q8H PRN PRN Reason: Nausea and Vomiting Oxycodone HCl (Oxycodone Hcl Immed Release 5 Mg Tablet) 5 mg PO Q4H PRN PRN Reason: Pain, Moderate(Pain Scale 4-6) Potassium Chloride (Potassium Chloride Packet 20 Meq Packet) 40 meq PO BID [facility] Stop: 01/19/25 09:01 Last Admin: 01/18/25 21:06 Dose: 40 meq Sodium Chloride (0.9 % Sodium Chloride Flush 3 Ml Syringe) 3 ml IVFLUSH QSHIFT [facility] Last Admin: 01/18/25 21:12 Dose: 3 ml Home Medications ?Medication ?Instructions ?Recorded ?Confirmed ?Last Taken ?Type ascorbic acid (vitamin C) 500 mg 500 mg PO DAILY 01/18/25 01/18/25 Unknown History tablet cholecalciferol (vitamin D3) 10 10 mcg PO DAILY 01/18/25 01/18/25 01/15/25 History mcg (400 unit) tablet multivitamin 1 tab PO DAILY 01/18/25 01/18/25 01/15/25 History tramadol 50 mg tablet 50 mg PO DAILY pain 01/18/25 01/18/25 01/18/25 History Physical Exam Exam: Exam: elderly female NAD abd soft, nontender, distended no overt resp distress no CARMEN Vital Signs: Vital Signs: Last Vital Signs Temp 98 F 01/19/25 03:39 Pulse 67 01/19/25 03:39 Resp 16 01/19/25 03:39 BP 130/60 01/19/25 03:39 Pulse Ox 95 01/19/25 03:39 O2 Del Method Room Air 01/19/25 03:39 BMI result Body Mass Index 35.2 Results Labs 01/19/25 05:41 01/19/25 05:41 Labs: Short CBC 01/18/25 01/19/25 Range/Units 13:00 05:41 WBC 8.0 7.0 (4.8-10.8) X10*3/uL Hgb 14.3 13.2 (12.0-16.0) g/dl Hct 40.6 39.2 (37.0-47.0) % Plt Count 339 309 (160-400) X10*3/uL BMP 01/18/25 01/18/25 01/19/25 13:00 17:33 05:41 Sodium 139 141 143 Potassium 2.5 L* 3.6 D 3.8 Chloride 103 104 106 Carbon Dioxide 28 BUN 9 6 L 7 L Creatinine 0.59 0.53 0.52 Calcium 9.0 8.8 8.8 Liver Function 01/18/25 01/18/25 01/19/25 Range/Units 13:00 17:33 05:41 Total Bilirubin 0.5 0.4 0.4 (0.0-1.0) mg/dL Direct Bilirubin 0.2 (0.0-0.5) mg/dL AST 20 22 24 (5-31) U/L ALT 18 14 17 (0-31) U/L Alkaline Phosphatase 70 69 62 (39-117) U/L Albumin 4.4 4.2 4.0 (3.5-5.0) g/dL Urine 01/18/25 Range/Units 14:51 Urine Color Yellow Urine Appearance Clear Urine pH 7.5 (5.0-9.0) Ur Specific [place] 1.015 (1.005-1.025) Urine Protein Negative (Neg-Trace) mg/dL Urine Glucose (UA) Negative (Negative) mg/dL Assessment and Plan (1) Ileitis: Status: Acute (2) Abdominal pain: Qualifiers: Abdominal location: lower abdomen, unspecified Qualified Code(s): R10.30 - Lower abdominal pain, unspecified Status: Acute (3) Nausea & vomiting: Status: Acute Plan Pt p/w recurrent small bowel wall thickening. 3rd time in the past 12 months. Prev colo 2023 at [facility] without any terminal ileum abnormality appreciated. Plan: - Stool studies for C Diff, GI panel, fecal calpro - Check CRP - Can hold off Abx for now - Cont clear liquids today. NPO after MN - PEG prep to start this evening - [place] to be scheduled for tmrw. Thank you for allowing me to participate in her care. Please do not hesitate to reach out for any questions or concerns. Procedures Date of Service Date of Service: 01/19/25
[2025-01-19 07:34] VITALS: BP 149/72; PULSE 74; RESP 16; TEMP 36.5; O2SAT 96
[2025-01-19] MEDS: Potassium Chloride Packet 20 MEQ PACKET 40 MEQ PO (08:23)
[2025-01-19] MEDS: 0.9 % Sodium Chloride Flush 3 ML SYRINGE IVFLUSH ×3 (08:24→20:17)
[2025-01-19] MEDS: Metoprolol Succinate ER 50 MG TAB.ER.24H PO (08:24)
--- NOTE | 2025-01-19 10:57 | MHC.CM.PN ---
PT LIVES WITH SON IS INDEPENDENT HAS OWN RIDE HOME WILL NOT NEED SERVICES WHEN DCD DC PLAN HOME N/S
--- NOTE | 2025-01-19 11:49 | HO.ANESPROP2 ---
Documented by User: Neha Cobos NP 01/19/25 11:50 HPI - Anesthesia Eval Consult details Narrative: 69 yr old female for colonoscopy Hypokalemia 2/2 diarrhea, chlorthalidone use on admission: K+ was 2.5, repleaced, repeat K+ 3.8 PMFSH Active Problems Active Problems: All Active Problems Abdominal pain (Acute) Hypokalemia (Acute) Diarrhea (Acute) Nausea & vomiting (Acute) Chronic pain (Acute) Hyponatremia (Acute) Hypokalemia (Acute) Dizziness (Acute) Cervical stenosis of spinal canal (Acute) Effusion, right shoulder (Acute) Labral tear of shoulder (Acute) Right rotator cuff tear (Acute) Osteoarthritis of knees, bilateral (Acute) Ileitis (Acute) Tubular adenoma of colon (Acute) Essential hypertension (Acute) Palpitations (Acute) Anxiety (Acute) Grief reaction (Acute) Right shoulder pain (Acute) Neck pain (Acute) Past Medical History Medical History Spontaneous pneumothorax Chronic pain Hyponatremia Hypokalemia Dizziness Cervical stenosis of spinal canal Effusion, right shoulder Labral tear of shoulder Right rotator cuff tear Osteoarthritis of knees, bilateral Ileitis Tubular adenoma of colon Essential hypertension Palpitations Anxiety Grief reaction Right shoulder pain Neck pain Bilateral cataracts Family History Family History Mother DVT (deep venous thrombosis) Pulmonary embolism Polymyalgia rheumatica Father ETOH abuse Brother Arthritis Lupus (systemic lupus erythematosus) Other Substance abuse Surgical History Surgical History Hx of colonoscopy History of bunionectomy H/O section Hx of total knee replacement Social History Social History Household Members: Children Housing: House Do you presently have visiting nurse or other home services: No Alcohol intake: never Patient Tobacco Use Status: Former Tobacco user Cigarettes Per Day: 3 Years Smoked: 6 e-Cigarette/Vaping Use: Never Used service: No Current occupational status: employed 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 Current occupational exposures/hazards: No Cognitive needs: No Hearing needs: No Vision needs: No Meds Allergies Allergy/AdvReac Type Severity Reaction Status Date / Time NSAIDS (Non-Steroidal Allergy Unknown Unknown Verified 01/18/25 12:43 Anti-Inflamma amoxicillin (From Augmentin) AdvReac Nausea and Verified 01/19/25 06:55 Vomiting clavulanic acid (From AdvReac Nausea and Verified 01/19/25 06:55 Augmentin) Vomiting Active Medications: Current Medications Acetaminophen (Acetaminophen 325 Mg Tablet) 650 mg PO Q6H PRN PRN Reason: Pain, Mild 1-3,fever,headache Calcium Carbonate (Calcium Carbonate 750 Mg Tab.Chew) 750 mg PO Q4H PRN PRN Reason: Heartburn Enoxaparin Sodium (Enoxaparin Sodium 40 Mg/0.4 Ml Syringe) 40 mg SUBCUT Q24H [facility] Last Admin: 01/18/25 17:45 Dose: 40 mg Lorazepam (Lorazepam 1 Mg Tablet) 1 mg PO BID PRN PRN Reason: Anxiety Magnesium Hydroxide (Milk Of Magnesia 30 Ml Oral.Susp) 30 ml PO DAILY PRN PRN Reason: Constipation Melatonin (Melatonin 3 Mg Tablet) 6 mg PO BEDTIME PRN PRN Reason: Insomnia Metoprolol Succinate (Metoprolol Succinate Er 50 Mg Tab.Er.24h) 50 mg PO DAILY [facility]; Protocol Last Admin: 01/19/25 08:24 Dose: 50 mg Morphine Sulfate (Morphine Sulfate 4 Mg/Ml Cartridge) 4 mg IVPUSH Q4H PRN; Protocol PRN Reason: Pain, Severe (Pain Scale 7-10) Last Admin: 01/19/25 11:29 Dose: 4 mg Multivitamins/Vitamin C (Multivitamin Tablet) 1 tab PO DAILY [facility] Last Admin: 01/19/25 08:24 Dose: 1 tab Ondansetron HCl (Ondansetron Hcl 4 Mg/2 Ml Vial) 4 mg IVPUSH Q8H PRN PRN Reason: Nausea and Vomiting Oxycodone HCl (Oxycodone Hcl Immed Release 5 Mg Tablet) 5 mg PO Q4H PRN PRN Reason: Pain, Moderate(Pain Scale 4-6) Sodium Chloride (0.9 % Sodium Chloride Flush 3 Ml Syringe) 3 ml IVFLUSH QSHIFT [facility] Last Admin: 01/19/25 08:24 Dose: 3 ml Home Medications ?Medication ?Instructions ?Recorded ?Confirmed ?Last Taken ?Type ascorbic acid (vitamin C) 500 mg 500 mg PO DAILY 01/18/25 01/18/25 Unknown History tablet cholecalciferol (vitamin D3) 10 10 mcg PO DAILY 01/18/25 01/18/25 01/15/25 History mcg (400 unit) tablet multivitamin 1 tab PO DAILY 01/18/25 01/18/25 01/15/25 History tramadol 50 mg tablet 50 mg PO DAILY pain 01/18/25 01/18/25 01/18/25 History Exam Height,Weight and Vital Signs: Height 5 ft 5 in Weight 96 kg Last Vital Signs Temp 97.7 F 01/19/25 07:34 Pulse 74 01/19/25 07:34 Resp 16 01/19/25 07:34 BP 149/72 H 01/19/25 07:34 Pulse Ox 96 01/19/25 07:34 O2 Del Method Room Air 01/19/25 07:34 Pertinent Lab Results Pertinent Lab Results: Laboratory Tests 01/18/25 01/18/25 01/18/25 13:00 14:51 17:33 WBC 8.0 RBC 4.64 Hgb 14.3 Hct 40.6 MCV 87.5 MCH 30.8 MCHC 35.2 H RDW 13.4 Plt Count 339 MPV 9.0 L Immature Gran % (Auto) 0.3 Neut % (Auto) 56.5 Lymph % (Auto) 30.2 [place] % (Auto) 8.5 Eos % (Auto) 3.6 Baso % (Auto) 0.9 Lymph # (Auto) 2.4 [place] # (Auto) 0.7 Eos # (Auto) 0.3 Baso # (Auto) 0.1 Abs Immat Gran (auto) 0.02 Absolute Neuts (auto) 4.5 Absolute Nucleated RBC 0.000 Nucleated RBC % (auto) 0.0 Sodium 139 141 Potassium 2.5 L* 3.6 D Chloride 103 104 Carbon Dioxide 27 28 Anion Gap 12 13 BUN 9 6 L Creatinine 0.59 0.53 Estim Creat Clear Calc 103.4 115.0 Estimated GFR > 60 > 60 Random Glucose 86 84 Calcium 9.0 8.8 Total Bilirubin 0.5 0.4 Direct Bilirubin 0.2 AST 20 22 ALT 18 14 Alkaline Phosphatase 70 69 C-Reactive Protein 0.49 Total Protein 6.7 6.9 Albumin 4.4 4.2 Lipase 8 Urine Color Yellow Urine Appearance Clear Urine pH 7.5 Ur Specific [place] 1.015 Urine Protein Negative Urine Glucose (UA) Negative Urine Ketones 15 Urine Blood Negative Urine Nitrite Negative Ur Leukocyte Esterase Negative C. difficile Tox B Gene COVID-19 ([facility]O) Negative COVID-19 Clin Com See Note Influenza Type A (MANDY) Negative Influenza Type B (MANDY) Negative Influenza A & B Note See Note 01/19/25 01/19/25 04:26 05:41 WBC 7.0 RBC 4.36 Hgb 13.2 Hct 39.2 MCV 89.9 MCH 30.3 MCHC 33.7 RDW 13.6 Plt Count 309 MPV 8.8 L Immature Gran % (Auto) 0.3 Neut % (Auto) 57.7 Lymph % (Auto) 25.1 [place] % (Auto) 11.4 H Eos % (Auto) 4.8 H Baso % (Auto) 0.7 Lymph # (Auto) 1.8 [place] # (Auto) 0.8 Eos # (Auto) 0.3 Baso # (Auto) 0.1 Abs Immat Gran (auto) 0.02 Absolute Neuts (auto) 4.1 Absolute Nucleated RBC 0.000 Nucleated RBC % (auto) 0.0 Sodium 143 Potassium 3.8 Chloride 106 Carbon Dioxide 28 Anion Gap 13 BUN 7 L Creatinine 0.52 Estim Creat Clear Calc 118.7 Estimated GFR > 60 Random Glucose 94 Calcium 8.8 Total Bilirubin 0.4 Direct Bilirubin AST 24 ALT 17 Alkaline Phosphatase 62 C-Reactive Protein Total Protein 6.1 L Albumin 4.0 Lipase Urine Color Urine Appearance Urine pH Ur Specific [place] Urine Protein Urine Glucose (UA) Urine Ketones Urine Blood Urine Nitrite Ur Leukocyte Esterase C. difficile Tox B Gene NEGATIVE COVID-19 (NEO) COVID-19 Clin Com Influenza Type A (MANDY) Influenza Type B (MANDY) Influenza A & B Note Documented by User: Lily Ceja MD 01/20/25 11:44 PMFSH Past Medical History Medical History Spontaneous pneumothorax Chronic pain Hyponatremia Hypokalemia Dizziness Cervical stenosis of spinal canal Effusion, right shoulder Labral tear of shoulder Right rotator cuff tear Osteoarthritis of knees, bilateral Ileitis Tubular adenoma of colon Essential hypertension Palpitations Anxiety Grief reaction Right shoulder pain Neck pain Bilateral cataracts Family History Family History Mother DVT (deep venous thrombosis) Pulmonary embolism Polymyalgia rheumatica Father ETOH abuse Brother Arthritis Lupus (systemic lupus erythematosus) Other Substance abuse Family history of problems with anesthesia: No Surgical History Surgical History Hx of colonoscopy History of bunionectomy H/O section Hx of total knee replacement History of Problems with Anesthesia: No Social History Social History Household Members: Children Housing: House Do you presently have visiting nurse or other home services: No Alcohol intake: never Patient Tobacco Use Status: Former Tobacco user Cigarettes Per Day: 3 Years Smoked: 6 e-Cigarette/Vaping Use: Never Used service: No Current occupational status: employed 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 Current occupational exposures/hazards: No Cognitive needs: No Hearing needs: No Vision needs: No Meds Allergies Allergy/AdvReac Type Severity Reaction Status Date / Time NSAIDS (Non-Steroidal Allergy Unknown Unknown Verified 01/18/25 12:43 Anti-Inflamma amoxicillin (From Augmentin) AdvReac Nausea and Verified 01/19/25 06:55 Vomiting clavulanic acid (From AdvReac Nausea and Verified 01/19/25 06:55 Augmentin) Vomiting Home Medications ?Medication ?Instructions ?Recorded ?Confirmed ?Last Taken ?Type ascorbic acid (vitamin C) 500 mg 500 mg PO DAILY 01/18/25 01/18/25 Unknown History tablet cholecalciferol (vitamin D3) 10 10 mcg PO DAILY 01/18/25 01/18/25 01/15/25 History mcg (400 unit) tablet multivitamin 1 tab PO DAILY 01/18/25 01/18/25 01/15/25 History tramadol 50 mg tablet 50 mg PO DAILY pain 01/18/25 01/18/25 01/18/25 History Exam Airway Mallampati Class: III TM Dist: <=3cm Neck ROM: Full Heart: rrr Lungs: cta Assessment and Plan Assessment Anesthesia Assessment: Anesthesia Plan Discussed and Chart Reviewed Final Anesthetic Review Family History of Problems with Anesthesia: No History of Problems with Anesthesia: No NPO: Yes ASA Class: III Final Preanesthetic Review: No Changes in Pt Med Stat, Meds/Allgs Chart Reviewed, Consent Obtained/Reviewed and Anes Risks/Benef Reviewed Patient Risk: Intermediate Procedure Risk: Low Anesthetic Plan Anesthetic Plan: MAC: Disposition: Standard PACU
[2025-01-19 12:00] VITALS: BP 144/68; PULSE 74; RESP 18; TEMP 37.2; O2SAT 94
--- NOTE | 2025-01-19 12:05 | HO.PM.IMPN ---
Subjective Subjective Date of Service: 01/19/25 Interval History: c/o lower abd cramping; hungry; diarrhea resolved Review of Systems Review of Systems: Yes all other systems are reviewed and are negative Physical Exam Vital Signs: Vital Signs: Last Vital Signs Temp 99 F 01/19/25 12:00 Pulse 74 01/19/25 12:00 Resp 18 01/19/25 12:00 BP 144/68 H 01/19/25 12:00 Pulse Ox 94 01/19/25 12:00 O2 Del Method Room Air 01/19/25 12:00 BMI result Body Mass Index 35.2 Gen: in no acute distress HEENT: sclera anicteric, moist mucus membranes Neck: supple Lungs: clear to auscultation bilaterally Heart: regular rate and rhythm, no murmurs Abd: soft, tender lower abdomen bilaterally without rebound, non-distended Ext: no edema Skin: warm/well-perfused Neuro: alert and oriented x3, no focal findings Psych: appropriate affect Objective Data Active Medications Acetaminophen (Acetaminophen 325 Mg Tablet) 650 mg PO Q6H PRN PRN Reason: Pain, Mild 1-3,fever,headache Calcium Carbonate (Calcium Carbonate 750 Mg Tab.Chew) 750 mg PO Q4H PRN PRN Reason: Heartburn Enoxaparin Sodium (Enoxaparin Sodium 40 Mg/0.4 Ml Syringe) 40 mg SUBCUT Q24H [facility] Last Admin: 01/18/25 17:45 Dose: 40 mg Documented By: LINDA Lorazepam (Lorazepam 1 Mg Tablet) 1 mg PO BID PRN PRN Reason: Anxiety Magnesium Hydroxide (Milk Of Magnesia 30 Ml Oral.Susp) 30 ml PO DAILY PRN PRN Reason: Constipation Melatonin (Melatonin 3 Mg Tablet) 6 mg PO BEDTIME PRN PRN Reason: Insomnia Metoprolol Succinate (Metoprolol Succinate Er 50 Mg Tab.Er.24h) 50 mg PO DAILY [facility]; Protocol Last Admin: 01/19/25 08:24 Dose: 50 mg Documented By: DARLYN Morphine Sulfate (Morphine Sulfate 4 Mg/Ml Cartridge) 4 mg IVPUSH Q4H PRN; Protocol PRN Reason: Pain, Severe (Pain Scale 7-10) Last Admin: 01/19/25 11:29 Dose: 4 mg Documented By: DARLYN Multivitamins/Vitamin C (Multivitamin Tablet) 1 tab PO DAILY [facility] Last Admin: 01/19/25 08:24 Dose: 1 tab Documented By: DARLYN Ondansetron HCl (Ondansetron Hcl 4 Mg/2 Ml Vial) 4 mg IVPUSH Q8H PRN PRN Reason: Nausea and Vomiting Oxycodone HCl (Oxycodone Hcl Immed Release 5 Mg Tablet) 5 mg PO Q4H PRN PRN Reason: Pain, Moderate(Pain Scale 4-6) Sodium Chloride (0.9 % Sodium Chloride Flush 3 Ml Syringe) 3 ml IVFLUSH QSHIFT [facility] Last Admin: 01/19/25 08:24 Dose: 3 ml Documented By: DARLYN Labs 01/19/25 05:41 01/19/25 05:41 Labs: Laboratory Results - last 24 hr 01/18/25 01/18/25 01/18/25 13:00 14:51 17:33 MCV 87.5 MCH 30.8 MCHC 35.2 H RDW 13.4 Plt Count 339 MPV 9.0 L Immature Gran % (Auto) 0.3 Neut % (Auto) 56.5 Lymph % (Auto) 30.2 [place] % (Auto) 8.5 Eos % (Auto) 3.6 Baso % (Auto) 0.9 Lymph # (Auto) 2.4 [place] # (Auto) 0.7 Eos # (Auto) 0.3 Baso # (Auto) 0.1 Abs Immat Gran (auto) 0.02 Absolute Neuts (auto) 4.5 Absolute Nucleated RBC 0.000 Nucleated RBC % (auto) 0.0 Anion Gap 12 13 Estim Creat Clear Calc 103.4 115.0 Estimated GFR > 60 > 60 Random Glucose 86 84 Calcium 9.0 8.8 Total Bilirubin 0.5 0.4 Direct Bilirubin 0.2 AST 20 22 ALT 18 14 Alkaline Phosphatase 70 69 C-Reactive Protein 0.49 Total Protein 6.7 6.9 Albumin 4.4 4.2 Lipase 8 Urine Color Yellow Urine Appearance Clear Urine pH 7.5 Ur Specific [place] 1.015 Urine Protein Negative Urine Glucose (UA) Negative Urine Ketones 15 Urine Blood Negative Urine Nitrite Negative Ur Leukocyte Esterase Negative C. difficile Tox B Gene COVID-19 ([facility]O) Negative COVID-19 Clin Com See Note Influenza Type A (MANDY) Negative Influenza Type B (MANDY) Negative Influenza A & B Note See Note 01/19/25 01/19/25 04:26 05:41 MCV 89.9 MCH 30.3 MCHC 33.7 RDW 13.6 Plt Count 309 MPV 8.8 L Immature Gran % (Auto) 0.3 Neut % (Auto) 57.7 Lymph % (Auto) 25.1 [place] % (Auto) 11.4 H Eos % (Auto) 4.8 H Baso % (Auto) 0.7 Lymph # (Auto) 1.8 [place] # (Auto) 0.8 Eos # (Auto) 0.3 Baso # (Auto) 0.1 Abs Immat Gran (auto) 0.02 Absolute Neuts (auto) 4.1 Absolute Nucleated RBC 0.000 Nucleated RBC % (auto) 0.0 Anion Gap 13 Estim Creat Clear Calc 118.7 Estimated GFR > 60 Random Glucose 94 Calcium 8.8 Total Bilirubin 0.4 Direct Bilirubin AST 24 ALT 17 Alkaline Phosphatase 62 C-Reactive Protein Total Protein 6.1 L Albumin 4.0 Lipase Urine Color Urine Appearance Urine pH Ur Specific [place] Urine Protein Urine Glucose (UA) Urine Ketones Urine Blood Urine Nitrite Ur Leukocyte Esterase C. difficile Tox B Gene NEGATIVE COVID-19 ([facility]O) COVID-19 Clin Com Influenza Type A (MANDY) Influenza Type B (MANDY) Influenza A & B Note Assessment and Plan (1) Ileitis: Status: Acute Plan d2, 69yo F with recurrent ileitis presenting with lower abd pain and diarrhea, found to have infectious/inflammatory ileitis ileitis - C diff neg, GI panel + fecal calprotectin pending, GI consulted, plan C-scope tomorrow, no ABX for now; prior colonoscopy at [facility] 04/26/23 with tubular adenomas x2 but the terminal ileum was not biopsied hypoK - resolved; hold chlorthalidone HTN - hold chlorthalidone as above; continue metoprolol succinate mood disorder: lorazepam VTE ppx: enoxaparin dispo: eventual home In my clinical judgment, the patient requires continued inpatient hospitalization for the following reasons: colonoscopy Total time managing care of this patient today: 35 minutes. Quality Stroke Does the patient have a stroke diagnosis?: No VTE Prior VTE?: No VTE Risk Level:: Medical - moderate - high VTE Device Contraindication: Treatment Not Indicated VTE Drug Contraindication: N/A - Med Ordered
[2025-01-19 12:17] LABS: E. coli EAEC Not Detected (Not Detect.); E. coli EPEC Not Detected (Not Detect.); E. coli ETEC Not Detected (Not Detect.); E. coli STEC Not Detected (Not Detect.); Shigella sp./EIEC Not Detected (Not Detect.)
[2025-01-19] MEDS: PEG 3350/Na Sulf,Bicarb,Cl/KCL 4,000 ML SOLN.RECON 4000 ML PO (15:44)
[2025-01-19 15:47] VITALS: BP 143/65; PULSE 72; RESP 18; TEMP 36.5; O2SAT 95
[2025-01-19 19:31] VITALS: BP 145/80; PULSE 79; RESP 72; TEMP 36.2; O2SAT 99
[2025-01-19 23:10] VITALS: BP 168/78; PULSE 77; RESP 18; TEMP 36.2; O2SAT 98
[2025-01-20 03:19] VITALS: BP 129/61; PULSE 67; RESP 20; TEMP 36.3; O2SAT 99
[2025-01-20 06:12] LABS: Anion Gap 11 (12-20); Blood Urea Nitrogen 4 mg/dL (9-16); Calcium 8.5 mg/dL (8.4-10.2); Carbon Dioxide 30 mmol/L (22-29); Chloride 103 mmol/L (96-108); Creatinine Clr Calc Pharmacy 116.4; Estimated Glomerular Filt Rate > 60; Potassium 3.2 mmol/L (3.3-5.1); Sodium 141 mmol/L (135-145)
[2025-01-20] MEDS: 0.9 % Sodium Chloride Flush 3 ML SYRINGE IVFLUSH ×2 (07:19→16:53)
[2025-01-20 07:54] VITALS: BP 160/67; PULSE 79; RESP 18; TEMP 36.8; O2SAT 95
[2025-01-20 10:41] VITALS: BP 161/79; PULSE 85; RESP 19; TEMP 36.1; O2SAT 97
--- NOTE | 2025-01-20 11:51 | MHC.SHP ---
Pre-Procedural Eval Section A - 24 Hr Update-Section A only Date of Service: 01/20/25 The patient is an INPATIENT: Yes The patient has been examined within 24 hours of the surgical procedure. The History & Physical has been completed within 30 days and I have reviewed it.: Yes Section B - Complete if H&P > 30 days Chief Complaint: ileitis Allergies: Allergies Allergy/AdvReac Type Severity Reaction Status Date / Time NSAIDS (Non-Steroidal Allergy Unknown Unknown Verified 01/18/25 12:43 Anti-Inflamma amoxicillin (From Augmentin) AdvReac Nausea and Verified 01/19/25 06:55 Vomiting clavulanic acid (From AdvReac Nausea and Verified 01/19/25 06:55 Augmentin) Vomiting Plan Diagnosis/Plan: Unchanged I have reviewed the history and physical and performed a pertinent physical examination on my patient. No changes have occurred unless specified. Time Spent With Patient Time: Total time managing care of this patient today ____ minutes.
[2025-01-20] MEDS: Lactated Ringers 1,000 ML 50 ML IVCONT (12:01)
--- NOTE | 2025-01-20 12:43 | P.OPN-COLO_ITS ---
Colonoscopy Operative Note Operative Note Date of Service: 01/20/25 Narrative: Procedure: Colonoscopy Indication: Ileitis Endoscopist: Renae Easley MD Anesthesia Provider: Faustino Patton CRNA Anesthesia type: MAC Instrument: Olympus [id number]-[id number] Consent: Indication, risks vs benefits, and alternatives were discussed with the patient who gave written informed consent to proceed. EKG, pulse, pulse oximetry and blood pressure were monitored throughout the procedure. Please see anesthesia flowsheet. Procedure: The patient was brought to the procedure room and placed in the left lateral decubitus position. IV medications were administered by the anesthesia provider in attendance. A digital rectal exam was performed which was normal. A distal attachment cap was affixed to the tip of the colonoscope which was then inserted through the anus and advanced through the colon to the cecum at 75 cm,and terminal ileum. Appendiceal orifice and ileocecal valve were identified. Mucosa was carefully examined under high definition white light as the instrument was slowly withdrawn in a retrograde panoramic fashion. Retroflexion was performed in rectum. The procedure was not difficult. There were no immediate obvious complications. The quality of the prep was BBPS: 2+3+2 = adequate Withdrawal time 11 minutes. Limitations: No limitations. Findings: Mucosa: Normal to cecum with mild narrowing of ileocecal valve. Diffuse erythema and punctate erosions noted in terminal ileum to the extent examined. Cold forceps biopsies were taken for histology. Protruding lesions: * 1 sessile polyp of size 4 mm in sigmoid colon. Cold snare polypectomy was performed. The polyp was completely removed and retrieved. * Large internal hemorrhoids without stigmata of recent bleeding. Excavated lesions: * Few diverticuli noted in sigmoid colon. Impression: 1. Ileitis 2. Total of 1 polyp removed 3. Diverticulosis 4. Internal hemorrhoids Recommendations: - Follow path results. - Appearance suspicious for crohns ileitis. Start prednisone 60 mg once daily x 14 days followed by a taper of 10 mg every 3 days. - Outpatient follow up will be scheduled to review bx results and for further management.
[2025-01-20 12:45] VITALS: BP 126/54; PULSE 86; RESP 14; TEMP 36.1; O2SAT 96
[2025-01-20 13:00] VITALS: BP 128/53; PULSE 86; RESP 14; TEMP 36.1; O2SAT 96
[2025-01-20] MEDS: Metoprolol Succinate ER 50 MG TAB.ER.24H PO (14:18)
--- NOTE | 2025-01-20 14:38 | PM.DS ---
DS: Providers Provider Date of Service: 01/20/25 Date of admission: 01/18/25 16:49 Date of discharge: 01/20/25 Primary care physician: ROS Mcgarry Consults: 01/18/25 17:24 Consult to Gastroenterology Routine Consulting Provider: [facility] Reason for consultation: abd pain Has provider been notified: No DS: Diagnosis Discharge Diagnosis (1) Ileitis: Status: Acute (2) Abdominal pain: Status: Acute (3) Nausea & vomiting: Status: Acute DS: Summary Hospital Course Hospital Course: From the history and physical by the admitting hospitalist, Maicol Wilder DO, 01/18/25: 61-year-old female past medical history significant for history of ileitis hypertension tubular adenoma presents to the emergency room with several days of nausea vomiting and profuse diarrhea. She states she has had similar episodes the 1st being approximately 1 year ago; last 2 episodes or months apart. She denies bloody diarrhea. Diagnosed with ileitis on the 1st episode and discharge on oral Augmentin. She states this episode she has diffuse pain lower abdomen and has been having profuse diarrhea. CT scan in the emergency room demonstrate prominent concentric wall thickening of the distal ileum and terminal ileum most characteristic of infectious or inflammatory enteritis. 69yo F with recurrent ileitis presenting with lower abd pain and diarrhea, found to have inflammatory ileitis. She was admitted to the medical-surgical unit with Gastroenterology consultation by Dr Renae Easley. C. difficile PCR and stool GI PCR panel negative; fecal calprotectin pending. Colonoscopy on 01/20/25 showed diffuse terminal ileitis and sessile 4 mm sigmoid polyp. Biopsies done of the ileum and the polyp removed. She was started on prednisone 60 mg/d x14d, to taper by 10 mg/d every 3d and will follow up with Dr Easley for biopsy results and further management in 1 week. Time Attestation Discharge Coordination Time (in mins): 35 Quality: Safe Use of Opioids Does Pt have an Active Cancer Diagnosis on the Problem List?: No Quality: Stroke Does the patient have a stroke diagnosis?: No Physical Exam Vital Signs: Vital Signs: Last Vital Signs Temp 97 F 01/20/25 13:00 Pulse 86 01/20/25 13:00 Resp 14 01/20/25 13:00 BP 128/53 L 01/20/25 13:00 Pulse Ox 96 01/20/25 13:00 O2 Del Method Room Air 01/20/25 13:00 BMI result Body Mass Index 35.2 Gen: in no acute distress HEENT: sclera anicteric, moist mucus membranes Neck: supple Lungs: clear to auscultation bilaterally Heart: regular rate and rhythm, no murmurs Abd: soft, tender lower abdomen bilaterally without rebound, non-distended Ext: no edema Skin: warm/well-perfused Neuro: alert and oriented x3, no focal findings Psych: appropriate affect DS: Data Data Completed and Pending Completed studies during hospitalization [Text1]: Laboratory Results WBC 7.0 X10*3/uL (4.8-10.8) 01/19/25 05:41 RBC 4.36 X10*6/uL (4.20-5.50) 01/19/25 05:41 Hgb 13.2 g/dl (12.0-16.0) 01/19/25 05:41 Hct 39.2 % (37.0-47.0) 01/19/25 05:41 MCV 89.9 fL (80.0-98.0) 01/19/25 05:41 MCH 30.3 pg (27.0-33.0) 01/19/25 05:41 MCHC 33.7 g/dl (31.0-35.0) 01/19/25 05:41 RDW 13.6 % (11.0-16.0) 01/19/25 05:41 Plt Count 309 X10*3/uL (160-400) 01/19/25 05:41 MPV 8.8 fL (9.4-12.3) L 01/19/25 05:41 Immature Gran % (Auto) 0.3 % (0.0-0.4) 01/19/25 05:41 Neut % (Auto) 57.7 % (45-73) 01/19/25 05:41 Lymph % (Auto) 25.1 % (20-40) 01/19/25 05:41 [place] % (Auto) 11.4 % (2-11) H 01/19/25 05:41 Eos % (Auto) 4.8 % (0-4) H 01/19/25 05:41 Baso % (Auto) 0.7 % (0-2) 01/19/25 05:41 Lymph # (Auto) 1.8 X10*3/uL (1.2-4.9) 01/19/25 05:41 [place] # (Auto) 0.8 X10*3/uL (0.1-1.2) 01/19/25 05:41 Eos # (Auto) 0.3 X10*3/uL (0.0-0.4) 01/19/25 05:41 Baso # (Auto) 0.1 X10*3/uL (0.0-0.2) 01/19/25 05:41 Abs Immat Gran (auto) 0.02 X10*3/uL (0.00-0.03) 01/19/25 05:41 Absolute Neuts (auto) 4.1 x10*3/uL (2.0-8.3) 01/19/25 05:41 Absolute Nucleated RBC 0.000 X10*3/uL (0.0-0.012) 01/19/25 05:41 Nucleated RBC % (auto) 0.0 /100WBC (0.0-0.2) 01/19/25 05:41 Sodium 141 mmol/L (135-145) 01/20/25 05:30 Potassium 3.2 mmol/L (3.3-5.1) L 01/20/25 05:30 Chloride 103 mmol/L (96-108) 01/20/25 05:30 Carbon Dioxide 30 mmol/L (22-29) H 01/20/25 05:30 Anion Gap 11 (12-20) L 01/20/25 05:30 BUN 4 mg/dL (9-16) L 01/20/25 05:30 Creatinine 0.53 mg/dL (0.5-1.4) 01/20/25 05:30 Estim Creat Clear Calc 116.4 01/20/25 05:30 Estimated GFR > 60 01/20/25 05:30 Random Glucose 85 mg/dL (60-115) 01/20/25 05:30 Calcium 8.5 mg/dL (8.4-10.2) 01/20/25 05:30 Total Bilirubin 0.4 mg/dL (0.0-1.0) 01/19/25 05:41 Direct Bilirubin 0.2 mg/dL (0.0-0.5) 01/18/25 13:00 AST 24 U/L (5-31) 01/19/25 05:41 ALT 17 U/L (0-31) 01/19/25 05:41 Alkaline Phosphatase 62 U/L (39-117) 01/19/25 05:41 C-Reactive Protein 0.33 mg/dL (< or = 0.50) 01/20/25 05:30 Total Protein 6.1 g/dL (6.5-8.0) L 01/19/25 05:41 Albumin 4.0 g/dL (3.5-5.0) 01/19/25 05:41 Lipase 8 U/L (8-78) 01/18/25 13:00 Urine Color Yellow 01/18/25 14:51 Urine Appearance Clear 01/18/25 14:51 Urine pH 7.5 (5.0-9.0) 01/18/25 14:51 Ur Specific Parker 1.015 (1.005-1.025) 01/18/25 14:51 Urine Protein Negative mg/dL (Neg-Trace) 01/18/25 14:51 Urine Glucose (UA) Negative mg/dL (Negative) 01/18/25 14:51 Urine Ketones 15 mg/dL (Negative) 01/18/25 14:51 Urine Blood Negative (Negative) 01/18/25 14:51 Urine Nitrite Negative (Negative) 01/18/25 14:51 Ur Leukocyte Esterase Negative (Negative) 01/18/25 14:51 Stl C. cayetanensis PCR Not Detected (Not Detect.) 01/19/25 10:25 Stool Rotavirus A PCR Not Detected (Not Detect.) 01/19/25 10:25 Stl Adenov F 40/41 PCR Not Detected (Not Detect.) 01/19/25 10:25 Stool Astrovirus (PCR) Not Detected (Not Detect.) 01/19/25 10:25 Stool Campylobacter PCR Not Detected (Not Detect.) 01/19/25 10:25 Stool Cryptosporidium PCR Not Detected (Not Detect.) 01/19/25 10:25 Stl Sh Tox Pr E STEC PCR Not Detected (Not Detect.) 01/19/25 10:25 Stool E coli O157 PCR Not applicable (Not Detect.) 01/19/25 10:25 Stl Enterotoxigenic E PCR Not Detected (Not Detect.) 01/19/25 10:25 Stool EPEC (PCR) Not Detected (Not Detect.) 01/19/25 10:25 Stool EAEC (PCR) Not Detected (Not Detect.) 01/19/25 10:25 Stl E. histolytica PCR Not Detected (Not Detect.) 01/19/25 10:25 Stool Giardia Lamblia PCR Not Detected (Not Detect.) 01/19/25 10:25 Stl P. shigelloides PCR Not Detected (Not Detect.) 01/19/25 10:25 Stool Salmonella PCR Not Detected (Not Detect.) 01/19/25 10:25 Stool Sapovirus (PCR) Not Detected (Not Detect.) 01/19/25 10:25 Stl Shigella/EIEC PCR Not Detected (Not Detect.) 01/19/25 10:25 St Y.enterocolitica PCR Not Detected (Not Detect.) 01/19/25 10:25 Stool Vibrio (PCR) Not Detected (Not Detect.) 01/19/25 10:25 Stl Vibrio cholerae PCR Not Detected (Not Detect.) 01/19/25 10:25 Stl Norovirus GI/GII PCR Not Detected (Not Detect.) 01/19/25 10:25 C. difficile Tox B Gene NEGATIVE (Negative) 01/19/25 04:26 COVID-19 (NEO) Negative (Negative) 01/18/25 13:00 COVID-19 Clin Com See Note 01/18/25 13:00 Influenza Type A (MANDY) Negative (Negative) 01/18/25 13:00 Influenza Type B (MANDY) Negative (Negative) 01/18/25 13:00 Influenza A & B Note See Note 01/18/25 13:00 Pending studies at discharge: Pending at discharge 01/20/25 12:27 Surgical [PTH] Routine Discharge Plan Discharge Anticipated Discharge Date/Time: 01/20/25 14:24 Patient Disposition: Home, Self-Care Discharge Diagnosis: ileitis Referrals: Kari Sullivan PA [Primary Care Provider, Endocrinology] - 1 Week Renae Easley MD [Physician, Gastroenterology] - 2 Weeks Discharge Medications: New prednisone 10 mg tablet 10 mg PO DIRECTED Qty: 129 0RF Rx Instructions: 60 mg daily for 14 days, then 50 mg daily for 3 days, then 40 mg daily for 3 days, then 30 mg daily for 3 days, then 20 mg daily for 3 days, then 10 mg daily for 3 days Continued metoprolol succinate 50 mg tablet extended release 24 hr 50 mg PO DAILY Qty: 90 3RF chlorthalidone 25 mg tablet 25 mg PO DAILY Qty: 90 3RF cyanocobalamin (vitamin B-12) 1,000 mcg tablet 1,000 mcg PO DAILY Qty: 90 1RF potassium chloride 20 mEq tablet extended release 20 meq PO DAILY Qty: 90 0RF lorazepam 1 mg tablet 1 mg PO BID PRN (Reason: anxiety) 28 Days Qty: 56 0RF multivitamin Tablet 1 tab PO DAILY ascorbic acid (vitamin C) 500 mg Tablet 500 mg PO DAILY cholecalciferol (vitamin D3) 10 mcg (400 unit) Tablet 10 mcg PO DAILY tramadol 50 mg tablet 50 mg PO DAILY Discharge Orders: Discharge Order (Routine); Ordered 01/20/25 Ordered By: Thelma Moore Diet: Advance to usual diet Activity on Discharge: As tolerated Stand Alone Forms: Patient Portal Discharge page Print Language: Portuguese Care Plan Goals: diagnose and treat GI disease Health Concerns: ileitis Plan of Treatment: prednisone taper as follows: - 60 mg daily x 14 days - 50 mg daily x 3 days - 40 mg daily x 3 days - 30 mg daily x 3 days - 20 mg daily x 3 days - 10 mg daily x 3 days follow up with Dr Easley from [facility] [place] 1-2 weeks Please follow up with your primary care doctor within 1 week. Return to the hospital if you experience recurrent or worsening symptoms. Assessment: See Discharge Summary.
--- NOTE | 2025-01-20 14:43 | MHC.CM.PN ---
pt dcd home self care
[2025-01-20 16:00] VITALS: BP 136/64; PULSE 81; RESP 19; TEMP 36.6; O2SAT 95
[2025-01-20] MEDS: oxyCODONE HCl Immed Release 5 MG TABLET PO (16:50)
[2025-01-23 17:57] LABS: Calprotectin, Fecal 7 mcg/g
== END 2025-01-20 19:21 | disposition home or self-care (01) | DRG 392 ==
LOC: HO.ED 16:43 → HO.EDOVER 17:03 → HO.S3 19:30
PROVIDERS: Internal Medicine; Nurse Practitioner Family; Physician Assistant; Admitting Provider Hospitalist; Emergency Provider Emergency Medicine; PCP Physician Assistant Medical; Visit Provider Family Medicine
PROC: 0DJD8ZZ Inspection of Lower Intestinal Tract, Via Natural or Artificial Opening Endoscopic (ICD-10-PCS; CPT 45378; principal; 2025-01-20 12:20)
DX: K52.9 Noninfective gastroenteritis and colitis, unspecified (principal); E87.6 Hypokalemia; I10 Essential (primary) hypertension; K63.5 Polyp of colon; K64.8 Other hemorrhoids; K57.30 Diverticulosis of large intestine without perforation or abscess without bleeding; Z20.822 Contact with and (suspected) exposure to COVID-19; Z87.891 Personal history of nicotine dependence; Z79.899 Other long term (current) drug therapy
CPT/HCPCS: 36415; 74177; 80048; 80053; 80076; 81003; 83690; 83993; 85025; 86140; 87493; 87502; 87507; 87635; 88305; 99285; J1650; J2270; J2405; J3480; J7120; Q9967

== ENCOUNTER → 2025-01-18 13:43 | Outpatient (BNV) | payer MEDICARE, SELFPAY | PROVIDERS: Emergency Provider Emergency Medicine; PCP Physician Assistant Medical; Visit Provider Radiology Diagnostic Radiology | DX: K63.89 Other specified diseases of intestine (principal) | CPT/HCPCS: 74177 ==

== ENCOUNTER → 2025-01-18 16:49 | Outpatient (BNV) | payer MEDICARE, SELFPAY | PROVIDERS: Admitting Provider Hospitalist; Emergency Provider Emergency Medicine; PCP Physician Assistant Medical; Visit Provider Hospitalist | DX: R10.30 Lower abdominal pain, unspecified (principal); E87.6 Hypokalemia; I10 Essential (primary) hypertension | CPT/HCPCS: 99223 ==

== ENCOUNTER → 2025-01-18 16:49 | Outpatient (BNV) | payer MEDICARE, SELFPAY | PROVIDERS: Admitting Provider Hospitalist; Emergency Provider Emergency Medicine; PCP Physician Assistant Medical; Visit Provider Internal Medicine | DX: K52.9 Noninfective gastroenteritis and colitis, unspecified (principal); K57.30 Diverticulosis of large intestine without perforation or abscess without bleeding; K64.8 Other hemorrhoids; D12.5 Benign neoplasm of sigmoid colon | CPT/HCPCS: 45380; 45385 ==

== ENCOUNTER 2025-03-25 15:19 | Outpatient (AMB) | payer MEDICARE, SELFPAY ==
--- NOTE | 2025-03-25 15:21 | MHC.OFFVIS ---
Vital Signs 03/25/25 15:26 Height 5 ft 5 in Weight 211 lb 10.3 oz BMI 35.2 BP 140/71 H Blood Pressure Location Lt brachial Position Sitting Pulse 77 Intake Visit Reasons: f/u Intake Note: Falguni presents in the office as a follow up. CC: She is not having any GI concerns at this time. 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 Was seen inpatient for severe abd pain with multiple episodes of loose watery BMs. CT scan in ER with diffuse thickening of distal and terminal ileum. This prompted a colo: 01/20/25: 1. Ileitis 2. Total of 1 polyp removed 3. Diverticulosis 4. Internal hemorrhoids Path: A. Colon, sigmoid, polypectomy: Tubular adenoma; negative for high-grade dysplasia or carcinoma. B. Terminal ileum, biopsy: Terminal ileal mucosa within normal limits. C. Colon, right, biopsy: Colonic mucosa within normal limits. Pt was prescribed pred before path report was finalized. Resulted in significant improvement, with complete resolution of symptoms. Stool studies from the hospital admission were also negative including calpro. The patient has remained asymptomatic since treatment. --- Pt was informed and consented to the use of ambient scribe for this encounter. --- [facility] Medical History Spontaneous pneumothorax Abdominal pain Hypokalemia Diarrhea Nausea & vomiting Chronic pain Hyponatremia Hypokalemia Dizziness Cervical stenosis of spinal canal Effusion, right shoulder Labral tear of shoulder Right rotator cuff tear Osteoarthritis of knees, bilateral Ileitis Tubular adenoma of colon Essential hypertension Palpitations Anxiety Grief reaction Right shoulder pain Neck pain Bilateral cataracts Surgical History Hx of colonoscopy History of bunionectomy H/O section Hx of total knee replacement Family History Mother DVT (deep venous thrombosis) Pulmonary embolism Polymyalgia rheumatica Father ETOH abuse Brother Arthritis Lupus (systemic lupus erythematosus) Other Substance abuse Social History Household Members: Children Housing: House Do you presently have visiting nurse or other home services: No Alcohol intake: never Patient Tobacco Use Status: Former Tobacco user Cigarettes Per Day: 3 Years Smoked: 6 e-Cigarette/Vaping Use: Never Used service: No Current occupational status: employed 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 Ileitis, Reviewed with the pt that normal path argues against Crohn's Disease. However since she did have indolent sx with endoscopic features will get CTE. Pt was also advised to call our office for any recurrence of sx in the meantime. Folow up 2 months after CTE Orders: Orders CT enterography Today K52.9 - Noninfective gastroenteritis and colitis, unspecified Coding Level of Care Code Est Pt Level 4 (45759) Diagnoses Ileitis K52.9
[2025-03-25 15:26] VITALS: BP 140/71; PULSE 77; BMI 35.2
== END 2025-03-25 15:54 | disposition home or self-care (01) ==
LOC: HO.HGI 15:20
PROVIDERS: PCP Physician Assistant Medical; Visit Provider Internal Medicine
DX: K52.9 Noninfective gastroenteritis and colitis, unspecified (principal)
CPT/HCPCS: 99214

== ENCOUNTER → 2025-03-25 15:19 | Outpatient (BNVA) | payer MEDICARE, SELFPAY | PROVIDERS: PCP Physician Assistant Medical; Visit Provider Internal Medicine | DX: K52.9 Noninfective gastroenteritis and colitis, unspecified (principal); Z09 Encounter for follow-up examination after completed treatment for conditions other than malignant neoplasm; D12.6 Benign neoplasm of colon, unspecified; Z87.891 Personal history of nicotine dependence | CPT/HCPCS: 99212 ==